=== PATIENT | male | born 1970 | race Caucasian/White ===

== ENCOUNTER 2022-03-30 11:37 | Emergency (ER) | payer OTHER, MEDICAID, SELFPAY ==
[2022-03-30] VITALS (10 sets, daily range): BP systolic 119–171; BP diastolic 72–128; PULSE 88–126; RESP 16–24; TEMP 36.4–36.8; O2SAT 90–98; BMI 23.6
[2022-03-30 12:02] LABS: Basophils # 0.1 10^3/uL (0.0-0.1); Basophils % 0.9 %; Eosinophils % 0.1 %; Hematocrit 29.1 % (42.0-52.0); Hemoglobin 9.9 g/dL (11.7-16.6); Lymphocytes # 0.4 10^3/uL (0.8-4.8); Lymphocytes % 5.1 %; Mean Corpuscular Hemoglobin 36.9 pg (28.0-34.0); Mean Corpuscular Volume 108.6 fl (80-94); Monocytes # 0.7 10^3/uL (0.2-0.9); Monocytes % 9.2 %; Neutrophils # 6.65 10^3/uL (1.8-7.7); Neutrophils % 84.2 %; Nucleated Red Blood Cells % 0 %; Platelet Count 129 10^3/cmm (130-400); Red Blood Count 2.68 10^6/uL (4.1-5.3); Red Cell Distribution Width 12.8 % (12.1-15.1); White Blood Count 7.9 10^3/uL (4.0-10.0)
[2022-03-30 12:34] LABS: Alanine Aminotransferase 86 U/L (0-41); Albumin Level 4.4 g/dL (3.5-5.2); Alkaline Phosphatase 128 IU/L (40-130); Anion Gap 31.8 (5-19); Aspartate Amino Transferase 138 U/L (0-40); Blood Urea Nitrogen 29 mg/dL (6-20); Calcium 9.4 mg/dL (8.5-10.5); Carbon Dioxide 16 mmol/L (22-29); Chloride 95 mmol/L (98-107); Globulin 3.3 g/dL (1.3-4.6); Glomerular Filtration Rate 64.1 mL/min (90-130); Glucose 55 mg/dL (65-115); Osmolality Calculated 293 mOsm/kg (285-295); Sodium 140 mmol/L (136-145); Total Bilirubin 4.1 mg/dL (0.15-1.2); Total Protein 7.7 g/dL (6.6-8.7)
--- NOTE | 2022-03-30 12:35 | PC.NURSE ---
Patient attempted to get out of bed x2, charge account identification clerk and vat house laborer aware, bed placement closer to nursing station. Patient instructed to stay in bed, call light within reach. Explained to patient that it is unsafe to try and get up at this time.
[2022-03-30 12:37] LABS: Alcohol Level < 10 mg/dL (0-10); Potassium 2.8 mmol/L (3.5-5.1)
--- NOTE | 2022-03-30 12:38 | PC.NURSE ---
Dr. Garzon notified that patient potassium is 2.8.
--- NOTE | 2022-03-30 13:07 | ED_ITS ---
Documented by User: Morris Garzon DO 04/11/22 08:21 HPI - Alcohol General: Chief Complaint: Alcohol Stated Complaint: ETOH WITHDRAWL Time Seen by Provider: 03/30/22 11:53 Source: patient Mode of arrival: ambulatory Limitations: no limitations History of Present Illness: 51-year-old male presents emergency room with complaints of alcohol withdrawal. Patient states he drinks half a gallon alcohol daily for the last several years. He stopped drinking about 4 days ago he is feeling weak he has tremors at this time. He states a few years ago he had a seizure, or he thinks he may have related to stopping drinking. He is confused and disoriented at this time he denies chest or abdominal pain no hematochezia melena hematemesis or coffee-ground emesis. MD complaint: alcohol withdrawal and alcohol dependence Last drink: Days (ago) Chronic alcohol use: Yes Recent trauma: No Associated symptoms: Deny abdominal pain, depression, diaphoresis, hematemesis, involuntary movements, melena, nausea, seizure-like activity, suicidal ideation, syncope or vomiting Treatments prior to arrival: none Review of Systems Const: Reports: fatigue and malaise; Denies: fever(s), chills or diaphoresis ENMT: Denies: throat pain, ear or mastoid pain, nasal discharge or nasal congestion Card: Denies: chest pain, palpitations, irregular heart rhythm or syncope Resp: Denies: dyspnea, productive cough or non-productive cough GI: Denies: abdominal pain, nausea, vomiting, hematemesis or melena : Denies: flank pain, dysuria, urinary frequency or urinary urgency Skin/Breast: Denies: rash or pruritus Neuro: Denies: seizure-like activity or involuntary movements Psych: Denies: depression or suicidal ideation PFS ED PFSH: Medical History Alcohol abuse Social History (Updated 04/11/22 @ 08:16 by Morris Garzon DO) Smoking and tobacco status: current every day smoker Alcohol intake: current Alcohol intake frequency: 3 or more drinks per day Alcohol type: hard liquor Physical Exam Const: GENERAL APPEARANCE: cooperative and comfortable ORIENTATION/CONSCIOUSNESS: Yes awake, Yes oriented to person, Yes oriented to place and Yes oriented to time HENMT: COMMON NORMALS: normocephalic, atraumatic and hearing grossly normal bilaterally HEAD & SCALP: normocephalic and atraumatic Neck/C-Spine: COMMON NORMALS: no JVD Resp: COMMON NORMALS: normal respiratory effort, No retractions, No use of accessory muscles and clear to auscultation bilaterally AUSCULTATION: clear to auscultation bilaterally Cardio: COMMON NORMALS: no JVD, regular rate, regular rhythm and No murmurs present (Cardio) RATE: regular rate RHYTHM: regular rhythm GI: COMMON NORMALS: Soft to palpation and No hepatosplenomegaly present AUSCULTATION: Yes normoactive bowel sounds PALPATION: Yes Soft to palpation, No Tenderness to palpation present (GI), No Guarding due to palpation present (GI) and Yes No hepatosplenomegaly present Extremity: COMMON NORMALS: normal to inspection, capillary refill normal, no clubbing, cyanosis or edema, no calf tenderness and no pedal edema Neuro: SENSORIUM/ORIENTATION: Yes oriented to person, Yes oriented to place and Yes oriented to time Skin: COMMON NORMALS: no rashes or lesions noted GENERAL SKIN EXAM: no rashes or lesions noted Course Vital Signs: Vital signs: Vital Signs Temperature 98.3 F 03/31/22 01:30 Pulse Rate 99 03/31/22 01:30 Respiratory Rate 20 H 03/31/22 01:30 Blood Pressure 149/108 03/31/22 01:30 Pulse Oximetry 92 03/31/22 01:30 MDM - Alcohol Medical Decision Making Patient given fluids and started on the CIWA protocol. He continued to be monitored we have been attempting to find placement for him. At this point our ICU is full at talk to Dr. Sheriff with the plan of trying to prove his medical condition closed anion gap and consider placement in psych theatric unit for further management of his alcohol withdrawal however patient continued to worsen care turned over to Dr. Brooks. Time and transition repeat labs showed that his anion gap is actually increased as well as his lactic acid. Patient care handed off from Dr. Garzon pending the patient ED evaluation and reassessment. Despite multiple treatments with both IV fluids and benzodiazepines patient condition continues to worsen. Laboratory studies also reflect worsening. He certainly requires ICU care and unfortunately do not have ICU bed availability. Patient's updated to [facility] ICU in [place]. Most likely diagnosis is DTs with profound metabolic derangement. The exact physician did asked that I treat patient with fomepizole as we do not have ability to to perform in-house serum osm testing and patient has persisted markedly elevated anion gap despite treatment. Patient transported via ground EMS in guarded condition with critical illness. Blake Tobin MD Emergency Medicine Lab Data : 03/30/22 11:44 03/30/22 17:[address] 03/30/22 21:23 IMPRESSION: No acute intracranial abnormality. Chest X-Ray 03/30/22 21:42 IMPRESSION: No acute cardiopulmonary abnormality. Laboratory Results WBC 7.9 10^3/uL (4.0-10.0) 03/30/22 11:44 RBC 2.68 10^6/uL (4.1-5.3) L 03/30/22 11:44 Hgb 9.9 g/dL (11.7-16.6) L 03/30/22 11:44 Hct 29.1 % (42.0-52.0) L 03/30/22 11:44 MCV 108.6 fl (80-94) H 03/30/22 11:44 MCH 36.9 pg (28.0-34.0) H 03/30/22 11:44 MCHC 34.0 g/dL (30.0-36.0) 03/30/22 11:44 RDW 12.8 % (12.1-15.1) 03/30/22 11:44 Plt Count 129 10^3/cmm (130-400) L 03/30/22 11:44 MPV 12.0 fL (7.4-10.4) H 03/30/22 11:44 Neut % (Auto) 84.2 % 03/30/22 11:44 Lymph % (Auto) 5.1 % 03/30/22 11:44 [place] % (Auto) 9.2 % 03/30/22 11:44 Eos % (Auto) 0.1 % 03/30/22 11:44 Baso % (Auto) 0.9 % 03/30/22 11:44 Neut # (Auto) 6.65 10^3/uL (1.8-7.7) 03/30/22 11:44 Lymph # (Auto) 0.4 10^3/uL (0.8-4.8) L 03/30/22 11:44 [place] # (Auto) 0.7 10^3/uL (0.2-0.9) 03/30/22 11:44 Eos # (Auto) 0.0 10^3/uL (0.0-0.8) 03/30/22 11:44 Baso # (Auto) 0.1 10^3/uL (0.0-0.1) 03/30/22 11:44 Nucleated RBC % (auto) 0 % 03/30/22 11:44 Nucleated RBCs # 0.0 /100WBC 03/30/22 11:44 Specimen Type Arterial 03/30/22 21:29 Sample Site Radial, right 03/30/22 21:29 ABG pH 7.16 (7.35-7.45) L* 03/30/22 21:29 ABG pCO2 17.0 mmHg (35-45) L* 03/30/22 21:29 ABG pO2 111.0 mmHg (80.0-100.0) H 03/30/22 21:29 ABG HCO3 6.0 mmol/L (22-26) L 03/30/22 21:29 ABG Base Excess -20.7 mmol/L (-2.0-2.0) L 03/30/22 21:29 Gerardo Test Pos 03/30/22 21:29 Hematocrit 27.3 % (42-52) L 03/30/22 21:29 O2 Delivery Device Room air 03/30/22 21:29 FiO2 21.0 % 03/30/22 21:29 Camera Mechanic ID Ed 03/30/22 21:29 Sodium 143 mmol/L (136-145) 03/30/22 17:37 Potassium 2.8 mmol/L (3.5-5.1) L* 03/30/22 17:37 Chloride 100 mmol/L (98-107) 03/30/22 17:37 Carbon Dioxide 10 mmol/L (22-29) L 03/30/22 17:37 Anion Gap 35.8 (5-19) H 03/30/22 17:37 BUN 28 mg/dL (6-20) H 03/30/22 17:37 Creatinine 1.1 mg/dL (0.7-1.2) 03/30/22 17:37 GFR Calculation 70.9 mL/min (90-130) L 03/30/22 17:37 Glucose 61 mg/dL (65-115) L 03/30/22 17:37 POC Glucose 72 mg/dL (70-110) 03/30/22 22:28 Calculated Osmolality 299 mOsm/kg (285-295) H 03/30/22 17:37 Lactic Acid 0.6 mmol/L (0.5-2.2) 03/30/22 22:40 Calcium 7.9 mg/dL (8.5-10.5) L 03/30/22 17:37 Total Bilirubin 4.1 mg/dL (0.15-1.2) H 03/30/22 11:44 AST 138 U/L (0-40) H 03/30/22 11:44 ALT 86 U/L (0-41) H 03/30/22 11:44 Alkaline Phosphatase 128 IU/L (40-130) 03/30/22 11:44 Total Protein 7.7 g/dL (6.6-8.7) 03/30/22 11:44 Albumin 4.4 g/dL (3.5-5.2) 03/30/22 11:44 Globulin 3.3 g/dL (1.3-4.6) 03/30/22 11:44 Salicylates < 0.3 mg/dL (3-10) L 03/30/22 11:49 Urine Opiates Screen Negative ng/mL (Negative) 03/30/22 22:40 Acetaminophen < 5.0 ug/mL (10-30) L 03/30/22 11:49 Ur Barbiturates Screen Negative ng/mL (Negative) 03/30/22 22:40 Ur Phencyclidine Scrn Negative ng/mL (Negative) 03/30/22 22:40 Ur Amphetamines Screen Negative ng/mL (Negative) 03/30/22 22:40 U Benzodiazepines Scrn Positive ng/mL (Negative) H 03/30/22 22:40 Urine Cocaine Screen Negative ng/mL (Negative) 03/30/22 22:40 U Marijuana (THC) Screen Negative ng/mL (Negative) 03/30/22 22:40 Ethyl Alcohol < 10 mg/dL (0-10) 03/30/22 11:44 Discharge Plan Discharge Clinical Impression: Alcohol withdrawal delirium, Alcoholic ketoacidosis, Hypokalemia, Anemia, macrocytic, Transaminitis, Elevated bilirubin Sign Out Sign Out Data: Patient Sign Out occurred on 03/30/22 at 19:19. Patient's care was discussed, and care was transferred from to Blake Tobin MD. Coding Level of Care Code ED Buildings And Grounds Director for Chg Fwd Documented by User: Blake Tobin MD 04/11/22 01:49 HPI - Alcohol General: Chief Complaint: Alcohol Stated Complaint: ETOH WITHDRAWL Time Seen by Provider: 03/30/22 11:53 PFSH ED PFSH: Medical History Alcohol abuse Social History (Updated 04/11/22 @ 08:16 by Morris Garzon, ) Smoking and tobacco status: current every day smoker Alcohol intake: current Alcohol intake frequency: 3 or more drinks per day Alcohol type: hard liquor Course Vital Signs: Vital signs: Vital Signs Temperature 98.3 F 03/31/22 01:30 Pulse Rate 99 03/31/22 01:30 Respiratory Rate 20 H 03/31/22 01:30 Blood Pressure 149/108 03/31/22 01:30 Pulse Oximetry 92 03/31/22 01:30 MDM - Alcohol Medical Decision Making Patient care handed off from Dr. Garzon pending the patient ED evaluation and reassessment. Despite multiple treatments with both IV fluids and benzodiazepines patient condition continues to worsen. Laboratory studies also reflect worsening. He certainly requires ICU care and unfortunately do not have ICU bed availability. Patient's updated to [facility] ICU in [place]. Most likely diagnosis is DTs with profound metabolic derangement. The exact physici an did asked that I treat patient with fomepizole as we do not have ability to to perform in-house serum osm testing and patient has persisted markedly elevated anion gap despite treatment. Patient transported via ground EMS in guarded condition with critical illness. Blake Tobin MD Emergency Medicine Lab Data : 03/30/22 11:44 03/30/22 17:[address] 03/30/22 21:23 IMPRESSION: No acute intracranial abnormality. Chest X-Ray 03/30/22 21:42 IMPRESSION: No acute cardiopulmonary abnormality. Laboratory Results WBC 7.9 10^3/uL (4.0-10.0) 03/30/22 11:44 RBC 2.68 10^6/uL (4.1-5.3) L 03/30/22 11:44 Hgb 9.9 g/dL (11.7-16.6) L 03/30/22 11:44 Hct 29.1 % (42.0-52.0) L 03/30/22 11:44 MCV 108.6 fl (80-94) H 03/30/22 11:44 MCH 36.9 pg (28.0-34.0) H 03/30/22 11:44 MCHC 34.0 g/dL (30.0-36.0) 03/30/22 11:44 RDW 12.8 % (12.1-15.1) 03/30/22 11:44 Plt Count 129 10^3/cmm (130-400) L 03/30/22 11:44 MPV 12.0 fL (7.4-10.4) H 03/30/22 11:44 Neut % (Auto) 84.2 % 03/30/22 11:44 Lymph % (Auto) 5.1 % 03/30/22 11:44 [place] % (Auto) 9.2 % 03/30/22 11:44 Eos % (Auto) 0.1 % 03/30/22 11:44 Baso % (Auto) 0.9 % 03/30/22 11:44 Neut # (Auto) 6.65 10^3/uL (1.8-7.7) 03/30/22 11:44 Lymph # (Auto) 0.4 10^3/uL (0.8-4.8) L 03/30/22 11:44 [place] # (Auto) 0.7 10^3/uL (0.2-0.9) 03/30/22 11:44 Eos # (Auto) 0.0 10^3/uL (0.0-0.8) 03/30/22 11:44 Baso # (Auto) 0.1 10^3/uL (0.0-0.1) 03/30/22 11:44 Nucleated RBC % (auto) 0 % 03/30/22 11:44 Nucleated RBCs # 0.0 /100WBC 03/30/22 11:44 Specimen Type Arterial 03/30/22 21:29 Sample Site Radial, right 03/30/22 21:29 ABG pH 7.16 (7.35-7.45) L* 03/30/22 21:29 ABG pCO2 17.0 mmHg (35-45) L* 03/30/22 21:29 ABG pO2 111.0 mmHg (80.0-100.0) H 03/30/22 21:29 ABG HCO3 6.0 mmol/L (22-26) L 03/30/22 21:29 ABG Base Excess -20.7 mmol/L (-2.0-2.0) L 03/30/22 21:29 Gerardo Test Pos 03/30/22 21:29 Hematocrit 27.3 % (42-52) L 03/30/22 21:29 O2 Delivery Device Room air 03/30/22 21:29 FiO2 21.0 % 03/30/22 21:29 Camera Mechanic ID Ed 03/30/22 21:29 Sodium 143 mmol/L (136-145) 03/30/22 17:37 Potassium 2.8 mmol/L (3.5-5.1) L* 03/30/22 17:37 Chloride 100 mmol/L (98-107) 03/30/22 17:37 Carbon Dioxide 10 mmol/L (22-29) L 03/30/22 17:37 Anion Gap 35.8 (5-19) H 03/30/22 17:37 BUN 28 mg/dL (6-20) H 03/30/22 17:37 Creatinine 1.1 mg/dL (0.7-1.2) 03/30/22 17:37 GFR Calculation 70.9 mL/min (90-130) L 03/30/22 17:37 Glucose 61 mg/dL (65-115) L 03/30/22 17:37 POC Glucose 72 mg/dL (70-110) 03/30/22 22:28 Calculated Osmolality 299 mOsm/kg (285-295) H 03/30/22 17:37 Lactic Acid 0.6 mmol/L (0.5-2.2) 03/30/22 22:40 Calcium 7.9 mg/dL (8.5-10.5) L 03/30/22 17:37 Total Bilirubin 4.1 mg/dL (0.15-1.2) H 03/30/22 11:44 AST 138 U/L (0-40) H 03/30/22 11:44 ALT 86 U/L (0-41) H 03/30/22 11:44 Alkaline Phosphatase 128 IU/L (40-130) 03/30/22 11:44 Total Protein 7.7 g/dL (6.6-8.7) 03/30/22 11:44 Albumin 4.4 g/dL (3.5-5.2) 03/30/22 11:44 Globulin 3.3 g/dL (1.3-4.6) 03/30/22 11:44 Salicylates < 0.3 mg/dL (3-10) L 03/30/22 11:49 Urine Opiates Screen Negative ng/mL (Negative) 03/30/22 22:40 Acetaminophen < 5.0 ug/mL (10-30) L 03/30/22 11:49 Ur Barbiturates Screen Negative ng/mL (Negative) 03/30/22 22:40 Ur Phencyclidine Scrn Negative ng/mL (Negative) 03/30/22 22:40 Ur Amphetamines Screen Negative ng/mL (Negative) 03/30/22 22:40 U Benzodiazepines Scrn Positive ng/mL (Negative) H 03/30/22 22:40 Urine Cocaine Screen Negative ng/mL (Negative) 03/30/22 22:40 U Marijuana (THC) Screen Negative ng/mL (Negative) 03/30/22 22:40 Ethyl Alcohol < 10 mg/dL (0-10) 03/30/22 11:44 Critical Care Time Critical Care Time: Critical Care Time: Yes Total Critical Care Time: 45 Attestation: Due to a high probability of clinically significant, possibly life threatening deterioration, the patient required my highest level of attention and pre paredness to intervene emergently and I personally spent this critical care time directly and personally managing the patient. This critical care time included obtaining a history; examining the patient; pulse oximetry; ordering and review of laboratory and imaging studies; arranging urgent treatment with development of a management plan; evaluation of patient's response to treatment; frequent re assessment; and, discussions with other providers as applicable. It was exclusive of separately billable procedures. Discharge Plan Discharge Clinical Impression: Alcohol withdrawal delirium, Alcoholic ketoacidosis, Hypokalemia, Anemia, macrocytic, Transaminitis, Elevated bilirubin Sign Out Sign Out Data: Patient Sign Out occurred on 03/30/22 at 19:19. Patient's care was discussed, and care was transferred from to Blake Tobin MD. Coding Level of Care Code ED Buildings And Grounds Director for Maryam Canas
[2022-03-30] MEDS: folic acid 1 MG, multivitamin inj 10 ML, thiamine 100 MG in sodium chloride 0.9% 1,000 ML 252.8 MG IV (13:17)
[2022-03-30] MEDS: LORazepam 2 mg/mL INJ 1 mL (14:27)
[2022-03-30] MEDS: LORazepam 2 mg/mL INJ 1 mL IM (14:58)
[2022-03-30] MEDS: sodium chloride 0.9% 1,000 ML 999 ML IV ×4 (16:01→21:57)
--- NOTE | 2022-03-30 16:27 | ECG_ITS ---
[facility] Test Date: 2022-03-30 Pat Name: Anselmo Rosenthal Department: Room: Gender: Male [employer] Interpreter: : 1970 Requested By: Morris Duval Order Number: [id number] Idalia MD: Teofilo Lai M.D. Measurements Intervals [place] Rate: 96 P: 70 IN: 145 QRS: 12 QRSD: 113 T: 23 QT: 383 QTc: 485 Interpretive Statements SINUS RHYTHM POSSIBLE LEFT ATRIAL ENLARGEMENT [-0.1mV P-WAVE IN V1/V2] MODERATE INTRAVENTRICULAR CONDUCTION DELAY [110+ ms QRS DURATION] No previous ECG available for comparison Electronically Signed On 03-30-2022 20:19:55 CDT by Teofilo Lai M.D. [id number]
[2022-03-30] MEDS: potassium chloride premix 100 ML 25 MEQ IV ×2 (16:40→21:08)
[2022-03-30] MEDS: LORazepam 2 mg/mL INJ 1 mL IVP ×2 (17:51→22:02)
[2022-03-30 18:35] LABS: Anion Gap 35.8 (5-19); Blood Urea Nitrogen 28 mg/dL (6-20); Calcium 7.9 mg/dL (8.5-10.5); Carbon Dioxide 10 mmol/L (22-29); Chloride 100 mmol/L (98-107); Glomerular Filtration Rate 70.9 mL/min (90-130); Glucose 61 mg/dL (65-115); Osmolality Calculated 299 mOsm/kg (285-295); Sodium 143 mmol/L (136-145)
[2022-03-30 18:43] LABS: Potassium 2.8 mmol/L (3.5-5.1)
--- NOTE | 2022-03-30 19:17 | PC.NURSE ---
This RN gave report to TAMMY Murphy at this time who will assume care at this time.
[2022-03-30] MEDS: magnesium sulfate premix 2 GM/50 ML PIGGYBACK IV (19:57)
--- NOTE | 2022-03-30 20:03 | PC.NURSE ---
Checked on pt and started another fluid bolus. Pt is not answering questions and is still shaky. Pt is protecting his airway. Pt was incontinent and changed and beding was changed.
--- NOTE | 2022-03-30 21:23 | CTR_ITS ---
PROCEDURE INFORMATION: Exam: CT Head Without Contrast Exam date and time: 03/30/2022 9:45 PM Age: 51 years old Clinical indication: Altered mental status/memory loss; Additional info: AMS TECHNIQUE: Imaging protocol: Computed tomography of the head without contrast. Radiation optimization: All CT scans at this facility use at least one of these dose optimization techniques: automated exposure control; mA and/or kV adjustment per patient size (includes targeted exams where dose is matched to clinical indication); or iterative reconstruction. COMPARISON: No relevant prior studies available. RADIATION DOSE METRICS: Total DLP (mGy-cm): 1636.39 FINDINGS: Brain: Mild atrophy and mild white matter chronic microvascular changes are noted. No hemorrhage or evidence of acute infarction. Cerebral ventricles: No ventriculomegaly. Paranasal sinuses: Visualized sinuses are unremarkable. No fluid levels. Mastoid air cells: Visualized mastoid air cells are well aerated. Bones/joints: Unremarkable. No acute fracture. Soft tissues: Unremarkable. CT/CT head wo con* [id number] IMPRESSION: No acute intracranial abnormality.
[2022-03-30 21:38] LABS: Arterial Blood Gas Hematocrit 27.3 % (42-52); Base Excess ABG -20.7 mmol/L (-2.0-2.0); Blood Gas Allen Test Pos; Blood Gas Operator Identificat ED; Blood Gas Sample Site Radial, right; Blood Gas Sample Type Arterial; Oxygen Device ROOM AIR
[2022-03-30 21:39] LABS: ABG PH Result 7.16 (7.35-7.45)
--- NOTE | 2022-03-30 21:42 | XRR_ITS ---
PROCEDURE INFORMATION: Exam: XR Chest Exam date and time: 03/30/2022 10:01 PM Age: 51 years old Clinical indication: Other: AMS TECHNIQUE: Imaging protocol: XR of the chest. Views: 1 view. COMPARISON: No relevant prior studies available. FINDINGS: Lungs: The lungs are clear. Pleural spaces: Unremarkable. No pleural effusion. No pneumothorax. Heart/Mediastinum: Unremarkable. No cardiomegaly. Bones/joints: Unremarkable. XR/XR chest 1V portable [id number] IMPRESSION: No acute cardiopulmonary abnormality.
[2022-03-30 22:17] LABS: Acetaminophen < 5.0 ug/mL (10-30); Salicylate < 0.3 mg/dL (3-10)
[2022-03-30 22:31] LABS: Glucose Point of Care 72 mg/dL (70-110)
[2022-03-30 23:06] LABS: Lactic Sepsis W/Reflex 0.6 mmol/L (0.5-2.2)
[2022-03-30] MEDS: dextrose 5%-sod chloride 0.9% 1,000 ML 100 ML IV (23:15)
[2022-03-31 00:16] LABS: Amphetamines Screen Urine Negative (Negative); Barbiturates Screen Urine Negative (Negative); Benzodiazepines Screen Urine Positive (Negative); Cocaine Screen Urine Negative (Negative); Opiate Screen Urine Negative (Negative); PCP Screen Urine Negative (Negative); THC Screen Urine Negative (Negative)
[2022-03-31 01:30] VITALS: BP 149/108; PULSE 99; RESP 20; TEMP 36.8; O2SAT 92
[2022-03-31] MEDS: potassium chloride premix 100 ML 25 MEQ IV (01:35)
--- NOTE | 2022-04-01 05:31 | PC.NURSE ---
Advised Dr. Delgadillo of preliminary 1 of 4 bottles, gram + cocci in clusters. Awaiting final results.
[2022-04-01 07:18] LABS: Bacillus cereus group Not Detected (NOT DETECT); Bacillus subtillis group Not Detected (NOT DETECT); Corynebacterium Not Detected (NOT DETECT); Cutibacterium acnes (P.acnes) Not Detected (NOT DETECT); Enterococcus Not Detected (NOT DETECT); Enterococcus faecalis Not Detected (NOT DETECT); Enterococcus faecium Not Detected (NOT DETECT); Lactobacillus species Not Detected (NOT DETECT); Listeria Not Detected (NOT DETECT); Listeria monocytogenes Not Detected (NOT DETECT); Micrococcus Not Detected (NOT DETECT); Pan Candida Not Detected (NOT DETECT); Pan Gram-Negative Not Detected (NOT DETECT); Staphylococcus epidermidis Not Detected (NOT DETECT); Staphylococcus lugdunensis Not Detected (NOT DETECT); Staphylococcus species Detected (NOT DETECT); Streptococcus agalactiae Not Detected (NOT DETECT); Streptococcus anginosus group Not Detected (NOT DETECT); Streptococcus pneumoniae Not Detected (NOT DETECT); Streptococcus pyogenes Not Detected (NOT DETECT); Streptococcus species Not Detected (NOT DETECT); mecA Not Detected (NOT DETECT); mecC Not Detected (NOT DETECT)
== END 2022-03-31 02:09 | disposition short-term general hospital (02) ==
PROVIDERS: Family Medicine; Physician Assistant; Emergency Provider Emergency Medicine
DX: F10.231 Alcohol dependence with withdrawal delirium (principal); Y90.0 Blood alcohol level of less than 20 mg/100 ml; E87.2 Acidosis; E87.6 Hypokalemia; D64.9 Anemia, unspecified; D75.89 Other specified diseases of blood and blood-forming organs; R74.01 Elevation of levels of liver transaminase levels; E80.7 Disorder of bilirubin metabolism, unspecified; F17.200 Nicotine dependence, unspecified, uncomplicated
CPT/HCPCS: 36416; 36600; 70450; 71045; 80048; 80053; 80306; 80307; 82803; 82962; 83605; 85025; 87040; 87150; 87205; 93005; 96365; 96366; 96367; 96372; 96375; 96376; 99285; J1451; J2060; J3411; J3475; J3480; J3490; J7030

== ENCOUNTER 2022-05-24 08:47 | Inpatient (IN) | payer OTHER, MEDICAID, SELFPAY ==
[2022-05-24] VITALS (9 sets, daily range): BP systolic 104–110; BP diastolic 68–76; PULSE 78–116; RESP 14–22; TEMP 36.6–36.9; O2SAT 95–99; BMI 22.1; BMI 18.7
[2022-05-24] MEDS: ondansetron 2 mg/ML SDV 2 mL 4 MG IVP (09:27)
[2022-05-24] MEDS: LORazepam 2 mg Tablet PO (09:27)
[2022-05-24 09:41] LABS: Basophils % 0.3 %; Eosinophils # 0.2 10^3/uL (0.0-0.8); Eosinophils % 2.4 %; Hematocrit 37.4 % (42.0-52.0); Hemoglobin 12.6 g/dL (11.7-16.6); Lymphocytes # 0.3 10^3/uL (0.8-4.8); Lymphocytes % 2.9 %; Mean Corpuscular HGB Conc 33.7 g/dL (30.0-36.0); Mean Corpuscular Hemoglobin 34.9 pg (28.0-34.0); Mean Corpuscular Volume 103.6 fl (80-94); Mean Platelet Volume 11.4 fL (7.4-10.4); Monocytes # 0.7 10^3/uL (0.2-0.9); Monocytes % 7.5 %; Neutrophils # 8.03 10^3/uL (1.8-7.7); Neutrophils % 86.1 %; Nucleated Red Blood Cells % 0.3 %; Platelet Count 72 10^3/cmm (130-400); Red Blood Count 3.61 10^6/uL (4.1-5.3); Red Cell Distribution Width 13.5 % (12.1-15.1); White Blood Count 9.3 10^3/uL (4.0-10.0)
[2022-05-24 09:42] LABS: Alanine Aminotransferase 90 U/L (0-41); Albumin Level 4.1 g/dL (3.5-5.2); Alkaline Phosphatase 150 IU/L (40-130); Anion Gap 46.3 (5-19); Aspartate Amino Transferase 179 U/L (0-40); Blood Urea Nitrogen 34 mg/dL (6-20); Calcium 9.7 mg/dL (8.5-10.5); Carbon Dioxide 14 mmol/L (22-29); Chloride 82 mmol/L (98-107); Globulin 3.8 g/dL (1.3-4.6); Glomerular Filtration Rate 12.9 mL/min (90-130); Glucose 162 mg/dL (65-115); Osmolality Calculated 299 mOsm/kg (285-295); Potassium 3.3 mmol/L (3.5-5.1); Sodium 139 mmol/L (136-145); Total Protein 7.9 g/dL (6.6-8.7)
[2022-05-24 09:43] LABS: Alcohol Level < 10 mg/dL (0-10)
[2022-05-24] MEDS: folic acid 1 MG, multivitamin inj 10 ML, thiamine 100 MG in sodium chloride 0.9% 1,000 ML 252.8 MG IV (09:49)
[2022-05-24 09:54] LABS: Ammonia 25 umol/L (16-60)
[2022-05-24 10:38] LABS: Protein Urine 3+ (Negative); Urine Appearance Cloudy (CLEAR); Urine Color Brown (Yellow); pH Urine 5 (5-7)
[2022-05-24 10:39] LABS: Add Urine Microscopic? YES; Bilirubin Urine 2+ (Negative); Blood Urine 3+ (Negative); Glucose Urine UA Norm (Normal); Ketones Urine 1+ (Negative); Leukocyte Esterase Urine 1+ (Negative); Nitrate Urine Positive (Negative); Urobilinogen Urine 4 mg/dL (Negative)
[2022-05-24 10:45] LABS: RBC Urine 0-4 /hpf (0-2); Squamous Epithelial Cell Urine 0-4 /hpf (0-5); WBC Urine 0-4 /hpf (0-5)
[2022-05-24 10:46] LABS: Amorphous Sediment Urine 3+ /hpf; Bacteria Urine TRACE /hpf; Hyaline Casts Urine 0-4 /lpf; Mucus Urine 3+ /hpf
[2022-05-24 10:47] LABS: Add Urine Culture? Yes; Amphetamines Screen Urine Negative (Negative); Barbiturates Screen Urine Negative (Negative); Benzodiazepines Screen Urine Positive (Negative); Cocaine Screen Urine Negative (Negative); Fine Granular Casts Urine 0-4 /lpf; Opiate Screen Urine Negative (Negative); PCP Screen Urine Negative (Negative); THC Screen Urine Negative (Negative)
--- NOTE | 2022-05-24 10:50 | W.ED.NAVMDI ---
Documented by User: Morris Garzon DO 05/31/22 07:21 HPI - Nausea/Vomiting/Diarrhea General: Chief complaint: Nausea/Vomiting/Diarrhea Stated complaint: N/V/D, WEAKNESS, HALLUCINATION Time Seen by Provider: 05/24/22 08:49 History of Present Illness: 51-year-old male presents emergency room complaining nausea vomiting weakness dizziness some hallucinations and palpitations. He has not been eating or drinking much for last 3 days he quit drinking alcohol about 24 hours ago. He states he usually drinks around half a pint to a pint per day. He has been doing that for a number of decades. In the past he is try to stop and did have a seizure and one episode. He has not had any seizures today he is quite jittery. Appears to have some scleral icterus he states he has been told before he has liver failure and cirrhosis. MD elicited complaint: nausea and vomiting Onset (ago): hour(s) Description of vomiting: food contents and watery Associated nausea: Yes Associated abdominal pain: Yes Radiation: diffuse Pain consistency: constant Severity: moderate Quality: cramping Exacerbating factors: none Relieving factors: none Associated symtoms: Reports anxiety, anorexia, malaise, nausea and weakness; Denies bloating, change in vision, chest pain, cough, diaphoresis, decreased urine output, dizziness, dysuria, epistaxis, fatigue, fecal incontinence, fevers/chills, headache(s), myalgias, numbness, palpitations, rash, short of breath, syncope, tenesmus or tinnitus Review of Systems Const: Reports: malaise; Denies: fever(s), chills, fatigue or diaphoresis Eyes: Denies: change in vision ENMT: Denies: tinnitus or epistaxis Card: Denies: chest pain, palpitations or syncope Resp: Denies: dyspnea, productive cough or non-productive cough GI: Reports: nausea; Denies: bloating or fecal incontinence : Denies: dysuria Skin/Breast: Denies: rash or pruritus Neuro: Denies: headache(s) or dizziness Psych: Reports: anxiety PFS ED PFSH: Medical History Acute renal failure Alcohol abuse Alcohol withdrawal Anxiety Depression Hypertension Thrombocytopenia Surgical History No pertinent past surgical history Family History Denies family history of Alcoholism Psychiatric illness Pancreatitis Social History Smoking and tobacco status: current every day smoker cigarettes Packs smoked per day: 1.5 Alcohol intake: current Alcohol intake frequency: 3 or more drinks per day Alcohol type: hard liquor Substance/Drug Use: never Additional social history: Moved here from [place] Physical Exam Const: COMMON NORMALS: no acute distress GENERAL APPEARANCE: cooperative ORIENTATION/CONSCIOUSNESS: Yes awake, Yes oriented to person, Yes oriented to place and Yes oriented to time HENMT: COMMON NORMALS: normocephalic, atraumatic, hearing grossly normal bilaterally, external ears normal, EAC's normal, TM's normal bilaterally, Normal nasal mucous membranes and turbinates present, moist oral mucous membranes and oropharynx normal HEAD & SCALP: normocephalic and atraumatic NOSE: Normal nasal mucous membranes and turbinates present EXTERNAL EAR: Yes external ears normal EXTERNAL AUDITORY CANAL: EAC's normal TYMPANIC MEMBRANE: TM's normal bilaterally Eye: COMMON NORMALS: Equal, round and reactive pupils present, EOMs intact bilaterally, conjunctivae normal and no scleral icterus CONJUNCTIVA: Yes conjunctivae normal PUPIL: Yes Equal, round and reactive pupils present Neck/C-Spine: COMMON NORMALS: full ROM, no lymphadenopathy, supple and no JVD Lymph: LYMPHATIC: no lymphadenopathy noted and no lymphedema noted Resp: COMMON NORMALS: normal respiratory effort, No retractions, No use of accessory muscles and clear to auscultation bilaterally AUSCULTATION: clear to auscultation bilaterally Cardio: COMMON NORMALS: no JVD, regular rate, regular rhythm and No murmurs present (Cardio) RATE: regular rate RHYTHM: regular rhythm GI: COMMON NORMALS: No hepatosplenomegaly present AUSCULTATION: Yes normoactive bowel sounds PALPATION: Yes Tenderness to palpation present (GI) Details: LUQ, No Guarding due to palpation present (GI) and Yes No hepatosplenomegaly present Extremity: COMMON NORMALS: normal to inspection, capillary refill normal, no clubbing, cyanosis or edema, no calf tenderness and no pedal edema Neuro: SENSORIUM/ORIENTATION: Yes oriented to person, Yes oriented to place and Yes oriented to time Skin: COMMON NORMALS: no rashes or lesions noted GENERAL SKIN EXAM: no rashes or lesions noted Course Vital Signs: Vital signs: Vital Signs Temperature 98.3 F 05/29/22 08:00 Pulse Rate 0 L 05/29/22 14:00 Respiratory Rate 15 05/29/22 08:00 Blood Pressure 137/84 05/29/22 08:00 Pulse Oximetry 99 05/29/22 08:00 Oxygen Delivery Me thod 05/28/22 12:00 MDM - Nausea/Vomiting/Diarrhea Medical Decision Making Patient has several different issues ongoing. In addition to his persistent nausea and vomiting he has pancreatitis and a high anion gap metabolic acidosis although this is likely precipitated by his drinking. In addition to that he has evidence of cystitis. Discussed with hospitalist orders written Medical Records I reviewed the patient's medical records. Lab Data I reviewed the patient's lab results. : 05/29/22 04:30 05/29/22 16:08 Radiology Impressions Abdomen Ultrasound 05/24/22 14:56 IMPRESSION: 1. Hepatomegaly with coarse echogenicity compatible with hepatocellular disease. Recommend correlation with liver function studies. 2. Hypoechoic pancreas suspicious for pancreatitis. Recommend correlation with pancreatic enzymes. 3. Gallbladder sludge. No gallbladder wall thickening or pericholecystic fluid. 4. Normal common bile duct. 5. No hydronephrosis in either kidney. Laboratory Results WBC 9.3 10^3/uL (4.0-10.0) 05/24/22 09:04 RBC 3.61 10^6/uL (4.1-5.3) L 05/24/22 09:04 Hgb 12.6 g/dL (11.7-16.6) 05/24/22 09:04 Hct 37.4 % (42.0-52.0) L 05/24/22 09:04 MCV 103.6 fl (80-94) H 05/24/22 09:04 MCH 34.9 pg (28.0-34.0) H 05/24/22 09:04 MCHC 33.7 g/dL (30.0-36.0) 05/24/22 09:04 RDW 13.5 % (12.1-15.1) 05/24/22 09:04 Plt Count 72 10^3/cmm (130-400) L 05/24/22 09:04 MPV 11.4 fL (7.4-10.4) H 05/24/22 09:04 Neut % (Auto) 86.1 % 05/24/22 09:04 Lymph % (Auto) 2.9 % 05/24/22 09:04 [place] % (Auto) 7.5 % 05/24/22 09:04 Eos % (Auto) 2.4 % 05/24/22 09:04 Baso % (Auto) 0.3 % 05/24/22 09:04 Neut # (Auto) 8.03 10^3/uL (1.8-7.7) H 05/24/22 09:04 Lymph # (Auto) 0.3 10^3/uL (0.8-4.8) L 05/24/22 09:04 [place] # (Auto) 0.7 10^3/uL (0.2-0.9) 05/24/22 09:04 Eos # (Auto) 0.2 10^3/uL (0.0-0.8) 05/24/22 09:04 Baso # (Auto) 0.0 10^3/uL (0.0-0.1) 05/24/22 09:04 Nucleated RBC % (auto) 0.3 % 05/24/22 09:04 Nucleated RBCs # 0.0 /100WBC 05/24/22 09:04 PT 13.10 SECONDS (12.1-14.9) 05/24/22 09:04 INR 0.97 (0.8-1.2) 05/24/22 09:04 APTT 30.0 SECONDS (23.9-36.7) 05/24/22 09:04 Sodium 139 mmol/L (136-145) 05/24/22 09:04 Potassium 3.3 mmol/L (3.5-5.1) L 05/24/22 09:04 Chloride 82 mmol/L (98-107) L 05/24/22 09:04 Carbon Dioxide 14 mmol/L (22-29) L 05/24/22 09:04 Anion Gap 46.3 (5-19) H 05/24/22 09:04 BUN 34 mg/dL (6-20) H 05/24/22 09:04 Creatinine 4.8 mg/dL (0.7-1.2) H 05/24/22 09:04 GFR Calculation 12.9 mL/min (90-130) L 05/24/22 09:04 Glucose 162 mg/dL (65-115) H 05/24/22 09:04 Serum Osmolality 326 mOsm/kg (278-305) H 05/24/22 09:04 Calculated Osmolality 299 mOsm/kg (285-295) H 05/24/22 09:04 Calcium 9.7 mg/dL (8.5-10.5) 05/24/22 09:04 Phosphorus 4.0 mg/dL (2.5-4.5) 05/24/22 09:04 Magnesium 1.9 mg/dL (1.7-2.3) 05/24/22 09:04 Total Bilirubin 5.0 mg/dL (0.15-1.2) H 05/24/22 09:04 AST 179 U/L (0-40) H 05/24/22 09:04 ALT 90 U/L (0-41) H 05/24/22 09:04 Alkaline Phosphatase 150 IU/L (40-130) H 05/24/22 09:04 Ammonia 25 umol/L (16-60) 05/24/22 09:33 Creatine Kinase 92 U/L (39-308) 05/24/22 09:04 Total Protein 7.9 g/dL (6.6-8.7) 05/24/22 09:04 Albumin 4.1 g/dL (3.5-5.2) 05/24/22 09:04 Globulin 3.8 g/dL (1.3-4.6) 05/24/22 09:04 Lipase 5973 U/L (13-60) H 05/24/22 09:04 Urine Color Brown (Yellow) 05/24/22 10:25 Urine Appearance Cloudy (CLEAR) 05/24/22 10:25 Urine pH 5 (5-7) 05/24/22 10:25 Ur Specific [place] 1.020 (1.005-1.030) 05/24/22 10:25 Urine Protein 3+ (Negative) H 05/24/22 10:25 Urine Glucose (UA) Norm (Normal) 05/24/22 10:25 Urine Ketones 1+ (Negative) H 05/24/22 10:25 Urine Blood 3+ (Negative) H 05/24/22 10:25 Urine Nitrate Positive (Negative) H 05/24/22 10:25 Urine Bilirubin 2+ (Negative) H 05/24/22 10:25 Urine Urobilinogen 4 mg/dL (Negative) H 05/24/22 10:25 Ur Leukocyte Esterase 1+ (Negative) H 05/24/22 10:25 Urine RBC 0-4 /hpf (0-2) H 05/24/22 10:25 Urine WBC 0-4 /hpf (0-5) H 05/24/22 10:25 Ur Squamous Epith Cells 0-4 /hpf (0-5) H 05/24/22 10:25 Amorphous Sediment 3+ /hpf 05/24/22 10:25 Urine Bacteria Trace /hpf (NONE) 05/24/22 10:25 Hyaline Casts 0-4 /lpf H 05/24/22 10:25 Fine Granular Casts 0-4 /lpf H 05/24/22 10:25 Urine Mucus 3+ /hpf 05/24/22 10:25 Urine Opiates Screen Negative ng/mL (Negative) 05/24/22 10:25 Ur Barbiturates Screen Negative ng/mL (Negative) 05/24/22 10:25 Ur Phencyclidine Scrn Negative ng/mL (Negative) 05/24/22 10:25 Ur Amphetamines Screen Negative ng/mL (Negative) 05/24/22 10:25 U Benzodiazepines Scrn Positive ng/mL (Negative) H 05/24/22 10:25 Urine Cocaine Screen Negative ng/mL (Negative) 05/24/22 10:25 U Marijuana (THC) Screen Negative ng/mL (Negative) 05/24/22 10:25 Ethyl Alcohol < 10 mg/dL (0-10) 05/24/22 09:04 Serum Ketones Positive (Negative) H 05/24/22 09:04 Hepatitis A IgM Ab Non-reactive (Nonreactive) 05/24/22 09:04 Hep Bs Antigen Non-reactive (Nonreactive) 05/24/22 09:04 Hep B Core IgM Ab Non-reactive (Nonreactive) 05/24/22 09:04 Hepatitis C Antibody Non-reactive (Nonreactive) 05/24/22 09:04 Discharge Plan Discharge Patient Disposition: Admitted As Inpatient Admit Provider: Meredith Serrano Clinical Impression: Pancreatitis, Acute renal failure, High anion gap metabolic acidosis, Alcohol abuse, Cystitis Condition: Stable Coding Level of Care Code ED Destination Imagination Coordinator for Chg Fwd Documented by User: Meredith Serrano MD 05/27/22 18:10 HPI - Nausea/Vomiting/Diarrhea General: Chief complaint: Nausea/Vomiting/Diarrhea Stated complaint: N/V/D, WEAKNESS, HALLUCINATION Time Seen by Provider: 05/24/22 08:49 PFSH ED PFSH: Medical History Acute renal failure Alcohol abuse Alcohol withdrawal Anxiety Depression Hypertension Thrombocytopenia Surgical History No pertinent past surgical history Family History Denies family history of Alcoholism Psychiatric illness Pancreatitis Social History Smoking and tobacco status: current every day smoker cigarettes Packs smoked per day: 1.5 Alcohol intake: current Alcohol intake frequency: 3 or more drinks per day Alcohol type: hard liquor Substance/Drug Use: never Additional social history: Moved here from [place] Course ED course: I inadvertently accessed this ED documentation while it was in draft during my initial evaluation of Mr. Rosenthal's relevant electronic records. I was attached to this note as an author by the EMR and cannot be removed as a signer. I did not personally care for Mr. Rosenthal within the scope of his ED visit; I did, however, assume care from the ED provider as admitting attending physician. Vital Signs: Vital signs: Vital Signs Temperature 98.3 F 05/29/22 08:00 Pulse Rate 0 L 05/29/22 14:00 Respiratory Rate 15 05/29/22 08:00 Blood Pressure 137/84 05/29/22 08:00 Pulse Oximetry 99 05/29/22 08:00 Oxygen Delivery Me thod 05/28/22 12:00 MDM - Nausea/Vomiting/Diarrhea Medical Decision Making . Lab Data : 05/29/22 04:30 05/29/22 16:08 Radiology Impressions Abdomen Ultrasound 05/24/22 14:56 IMPRESSION: 1. Hepatomegaly with coarse echogenicity compatible with hepatocellular disease. Recommend correlation with liver function studies. 2. Hypoechoic pancreas suspicious for pancreatitis. Recommend correlation with pancreatic enzymes. 3. Gallbladder sludge. No gallbladder wall thickening or pericholecystic fluid. 4. Normal common bile duct. 5. No hydronephrosis in either kidney. Laboratory Results WBC 9.3 10^3/uL (4.0-10.0) 05/24/22 09:04 RBC 3.61 10^6/uL (4.1-5.3) L 05/24/22 09:04 Hgb 12.6 g/dL (11.7-16.6) 05/24/22 09:04 Hct 37.4 % (42.0-52.0) L 05/24/22 09:04 MCV 103.6 fl (80-94) H 05/24/22 09:04 MCH 34.9 pg (28.0-34.0) H 05/24/22 09:04 MCHC 33.7 g/dL (30.0-36.0) 05/24/22 09:04 RDW 13.5 % (12.1-15.1) 05/24/22 09:04 Plt Count 72 10^3/cmm (130-400) L 05/24/22 09:04 MPV 11.4 fL (7.4-10.4) H 05/24/22 09:04 Neut % (Auto) 86.1 % 05/24/22 09:04 Lymph % (Auto) 2.9 % 05/24/22 09:04 [place] % (Auto) 7.5 % 05/24/22 09:04 Eos % (Auto) 2.4 % 05/24/22 09:04 Baso % (Auto) 0.3 % 05/24/22 09:04 Neut # (Auto) 8.03 10^3/uL (1.8-7.7) H 05/24/22 09:04 Lymph # (Auto) 0.3 10^3/uL (0.8-4.8) L 05/24/22 09:04 [place] # (Auto) 0.7 10^3/uL (0.2-0.9) 05/24/22 09:04 Eos # (Auto) 0.2 10^3/uL (0.0-0.8) 05/24/22 09:04 Baso # (Auto) 0.0 10^3/uL (0.0-0.1) 05/24/22 09:04 Nucleated RBC % (auto) 0.3 % 05/24/22 09:04 Nucleated RBCs # 0.0 /100WBC 05/24/22 09:04 PT 13.10 SECONDS (12.1-14.9) 05/24/22 09:04 INR 0.97 (0.8-1.2) 05/24/22 09:04 APTT 30.0 SECONDS (23.9-36.7) 05/24/22 09:04 Sodium 139 mmol/L (136-145) 05/24/22 09:04 Potassium 3.3 mmol/L (3.5-5.1) L 05/24/22 09:04 Chloride 82 mmol/L (98-107) L 05/24/22 09:04 Carbon Dioxide 14 mmol/L (22-29) L 05/24/22 09:04 Anion Gap 46.3 (5-19) H 05/24/22 09:04 BUN 34 mg/dL (6-20) H 05/24/22 09:04 Creatinine 4.8 mg/dL (0.7-1.2) H 05/24/22 09:04 GFR Calculation 12.9 mL/min (90-130) L 05/24/22 09:04 Glucose 162 mg/dL (65-115) H 05/24/22 09:04 Serum Osmolality 326 mOsm/kg (278-305) H 05/24/22 09:04 Calculated Osmolality 299 mOsm/kg (285-295) H 05/24/22 09:04 Calcium 9.7 mg/dL (8.5-10.5) 05/24/22 09:04 Phosphorus 4.0 mg/dL (2.5-4.5) 05/24/22 09:04 Magnesium 1.9 mg/dL (1.7-2.3) 05/24/22 09:04 Total Bilirubin 5.0 mg/dL (0.15-1.2) H 05/24/22 09:04 AST 179 U/L (0-40) H 05/24/22 09:04 ALT 90 U/L (0-41) H 05/24/22 09:04 Alkaline Phosphatase 150 IU/L (40-130) H 05/24/22 09:04 Ammonia 25 umol/L (16-60) 05/24/22 09:33 Creatine Kinase 92 U/L (39-308) 05/24/22 09:04 Total Protein 7.9 g/dL (6.6-8.7) 05/24/22 09:04 Albumin 4.1 g/dL (3.5-5.2) 05/24/22 09:04 Globulin 3.8 g/dL (1.3-4.6) 05/24/22 09:04 Lipase 5973 U/L (13-60) H 05/24/22 09:04 Urine Color Brown (Yellow) 05/24/22 10:25 Urine Appearance Cloudy (CLEAR) 05/24/22 10:25 Urine pH 5 (5-7) 05/24/22 10:25 Ur Specific [place] 1.020 (1.005-1.030) 05/24/22 10:25 Urine Protein 3+ (Negative) H 05/24/22 10:25 Urine Glucose (UA) Norm (Normal) 05/24/22 10:25 Urine Ketones 1+ (Negative) H 05/24/22 10:25 Urine Blood 3+ (Negative) H 05/24/22 10:25 Urine Nitrate Positive (Negative) H 05/24/22 10:25 Urine Bilirubin 2+ (Negative) H 05/24/22 10:25 Urine Urobilinogen 4 mg/dL (Negative) H 05/24/22 10:25 Ur Leukocyte Esterase 1+ (Negative) H 05/24/22 10:25 Urine RBC 0-4 /hpf (0-2) H 05/24/22 10:25 Urine WBC 0-4 /hpf (0-5) H 05/24/22 10:25 Ur Squamous Epith Cells 0-4 /hpf (0-5) H 05/24/22 10:25 Amorphous Sediment 3+ /hpf 05/24/22 10:25 Urine Bacteria Trace /hpf (NONE) 05/24/22 10:25 Hyaline Casts 0-4 /lpf H 05/24/22 10:25 Fine Granular Casts 0-4 /lpf H 05/24/22 10:25 Urine Mucus 3+ /hpf 05/24/22 10:25 Urine Opiates Screen Negative ng/mL (Negative) 05/24/22 10:25 Ur Barbiturates Screen Negative ng/mL (Negative) 05/24/22 10:25 Ur Phencyclidine Scrn Negative ng/mL (Negative) 05/24/22 10:25 Ur Amphetamines Screen Negative ng/mL (Negative) 05/24/22 10:25 U Benzodiazepines Scrn Positive ng/mL (Negative) H 05/24/22 10:25 Urine Cocaine Screen Negative ng/mL (Negative) 05/24/22 10:25 U Marijuana (THC) Screen Negative ng/mL (Negative) 05/24/22 10:25 Ethyl Alcohol < 10 mg/dL (0-10) 05/24/22 09:04 Serum Ketones Positive (Negative) H 05/24/22 09:04 Hepatitis A IgM Ab Non-reactive (Nonreactive) 05/24/22 09:04 Hep Bs Antigen Non-reactive (Nonreactive) 05/24/22 09:04 Hep B Core IgM Ab Non-reactive (Nonreactive) 05/24/22 09:04 Hepatitis C Antibody Non-reactive (Nonreactive) 05/24/22 09:04 Discharge Plan Discharge Patient Disposition: Admitted As Inpatient Admit Provider: Meredith Serrano Clinical Impression: Pancreatitis, Acute renal failure, High anion gap metabolic acidosis, Alcohol abuse, Cystitis Condition: Stable Coding Level of Care Code ED Destination Imagination Coordinator for Maryam Canas
[2022-05-24 11:36] LABS: Lipase 5973 U/L (13-60)
[2022-05-24] MEDS: sodium chloride 0.9% 1,000 ML 999 ML IV ×2 (12:21→16:18)
--- NOTE | 2022-05-24 13:48 | P.HP_ITS ---
Providers/Chief Complaint Admitting Physician: Meredith Serrano MD Chief Complaint: N/V/D, WEAKNESS, HALLUCINATION History of Present Illness Anselmo Rosenthal is a 51 year old male who presented to the emergency room with chief complaint of intractable nausea and vomiting. He has vomited more times than he can count over the last 2 days. Any attempted oral intake he vomits. He has had some loose stools but the vomit has been more concerning to him. He denied any hematemesis. No blood in his bowels. He normally drinks about a half a pint of hard liquor a day. He has not been able to keep any down for a day and a half. Denies prior problems with severe alcohol withdrawal but has had the tremors start to develop in the last 24 hours. He has had general malaise, weakness. Denies any abdominal pain. In the emergency room he was found to have evidence of acute renal failure, hepatitis and pancreatitis. Hospitalist were contacted for admission. Recent fever or chills. He has had significant decrease in urine output. Says he has not had any urine output for about a day. No dysuria or hematuria. He has not had any upper respiratory symptoms. No chest pain. Denies weight loss. No increased abdominal girth. No bleeding. No sores. Does report some bad teeth. In the emergency room patient received some fluids, Zofran, oral Ativan. He has not had any further vomiting. He did produce urine specimen for analysis. Review of Systems Const: Reports: change in appetite (No appetite), fatigue and malaise; Denies: fever(s), chills or change in weight Eyes: Denies: change in vision ENMT: Reports: other (A couple of bad teeth); Denies: throat pain or nasal congestion Card: Reports: leg pain with exertion; Denies: chest pain, palpitations, edema, lightheadedness, syncope or dyspnea on exertion Resp: Denies: dyspnea, productive cough, non-productive cough or pain on inspiration GI: Reports: nausea, vomiting (Too numerous to count), heartburn and diarrhea (Some loose stools); Denies: abdominal pain, hematemesis, coffee ground emesis, constipation, hematochezia or melena : Reports: oliguria; Denies: flank pain, difficulty urinating, dysuria, urinary frequency or hematuria Musc: Reports: other (Generalized aches and pains) Skin/Breast: Denies: rash, pruritus or sores Neuro: Denies: headache(s), numbness in extremities, weakness in extremities or difficulty walking Psych: Reports: anxiety, depression and difficulty concentrating; Denies: visual hallucinations, auditory hallucinations, tactile hallucinations, suicidal ideation or homicidal ideation Avlerto/Lymph: Denies: easy bruising or easy bleeding All/Imm: Reports: itchy eyes Medications/Allergies Home Medications Medication Instructions Recorded Confirmed Last Taken Type clonazepam 0.5 mg tablet 0.5 mg PO BID 03/30/22 05/24/22 Unknown History losartan 100 mg tablet 100 mg PO DAILY 03/30/22 05/24/22 Unknown History sucralfate 1 gram tablet 1 g PO .BEFORE MEALS 03/30/22 05/24/22 Unknown History citalopram 20 mg tablet 20 mg PO BEDTIME 05/24/22 05/24/22 Unknown History folic acid 1 mg tablet 1 mg PO DAILY 05/24/22 05/24/22 Unknown History Allergies Allergy/AdvReac Type Severity Reaction Status Date / Time No Known Allergies Allergy Verified 05/24/22 09:52 PFSH Acute PFSH: Medical History (Updated 05/24/22 @ 15:16 by Meredith Serrano MD) Alcohol abuse Anxiety Depression Hypertension Surgical History (Updated 05/24/22 @ 14:34 by Meredith Serrano MD) No pertinent past surgical history Family History (Updated 05/24/22 @ 14:35 by Meredith Serrano MD) Denies family history of Alcoholism Psychiatric illness Pancreatitis Social History (Updated 05/24/22 @ 14:36 by Meredith Serrano MD) Smoking and tobacco status: current every day smoker cigarettes Packs smoked per day: 1.5 Alcohol intake: current Alcohol intake frequency: 3 or more drinks per day Alcohol type: hard liquor Substance/Drug Use: never Additional social history: Moved here from [place] Vitals/I&O/Wt Last Vital Signs Temp 98.4 F 05/24/22 08:54 Pulse 93 05/24/22 11:33 Resp 22 H 05/24/22 11:33 BP 108/68 05/24/22 11:33 Pulse Ox 98 05/24/22 11:33 O2 Del Method 05/24/22 11:33 Weight last 48 hrs Weight 68.039 kg Physical Exam Narrative: Constitutional: Awake and alert, mildly tremulous, anxious appearing but cooperative and able to provide history HEENT: Normocephalic, atraumatic, extraocular movements intact, lateral nystagmus, injected conjunctive a bilaterally right more so than left, na sopharynx is clear, oropharynx with dry mucous membranes, fair dentition with a few obvious bad teeth lower right Neck: Supple Respiratory: Clear to auscultation bilaterally Cardiovascular: Regular rhythm, no murmurs gallops or rubs Abdomen: Soft, nontender, positive bowel sounds, no flank pain reported though some mild guarding left flank Extremities: Thin build, no pitting edema, no calf tenderness, 1+ pulses x4, 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) Skin: Dry, no significant petechiae noted, no bruising, minor sores Neuro: Speech clear, face symmetric, mild resting tremor notable most at hands Psych: Anxious, slightly flat affect Data : 05/24/22 09:04 05/24/22 09:04 Other Labs: Laboratory Results WBC 9.3 10^3/uL (4.0-10.0) 05/24/22 09:04 RBC 3.61 10^6/uL (4.1-5.3) L 05/24/22 09:04 Hgb 12.6 g/dL (11.7-16.6) 05/24/22 09:04 Hct 37.4 % (42.0-52.0) L 05/24/22 09:04 MCV 103.6 fl (80-94) H 05/24/22 09:04 MCH 34.9 pg (28.0-34.0) H 05/24/22 09:04 MCHC 33.7 g/dL (30.0-36.0) 05/24/22 09:04 RDW 13.5 % (12.1-15.1) 05/24/22 09:04 Plt Count 72 10^3/cmm (130-400) L 05/24/22 09:04 MPV 11.4 fL (7.4-10.4) H 05/24/22 09:04 Neut % (Auto) 86.1 % 05/24/22 09:04 Lymph % (Auto) 2.9 % 05/24/22 09:04 Warrick % (Auto) 7.5 % 05/24/22 09:04 Eos % (Auto) 2.4 % 05/24/22 09:04 Baso % (Auto) 0.3 % 05/24/22 09:04 Neut # (Auto) 8.03 10^3/uL (1.8-7.7) H 05/24/22 09:04 Lymph # (Auto) 0.3 10^3/uL (0.8-4.8) L 05/24/22 09:04 Warrick # (Auto) 0.7 10^3/uL (0.2-0.9) 05/24/22 09:04 Eos # (Auto) 0.2 10^3/uL (0.0-0.8) 05/24/22 09:04 Baso # (Auto) 0.0 10^3/uL (0.0-0.1) 05/24/22 09:04 Nucleated RBC % (auto) 0.3 % 05/24/22 09:04 Nucleated RBCs # 0.0 /100WBC 05/24/22 09:04 Sodium 139 mmol/L (136-145) 05/24/22 09:04 Potassium 3.3 mmol/L (3.5-5.1) L 05/24/22 09:04 Chloride 82 mmol/L (98-107) L 05/24/22 09:04 Carbon Dioxide 14 mmol/L (22-29) L 05/24/22 09:04 Anion Gap 46.3 (5-19) H 05/24/22 09:04 BUN 34 mg/dL (6-20) H 05/24/22 09:04 Creatinine 4.8 mg/dL (0.7-1.2) H 05/24/22 09:04 GFR Calculation 12.9 mL/min (90-130) L 05/24/22 09:04 Glucose 162 mg/dL (65-115) H 05/24/22 09:04 Calculated Osmolality 299 mOsm/kg (285-295) H 05/24/22 09:04 Calcium 9.7 mg/dL (8.5-10.5) 05/24/22 09:04 Total Bilirubin 5.0 mg/dL (0.15-1.2) H 05/24/22 09:04 AST 179 U/L (0-40) H 05/24/22 09:04 ALT 90 U/L (0-41) H 05/24/22 09:04 Alkaline Phosphatase 150 IU/L (40-130) H 05/24/22 09:04 Ammonia 25 umol/L (16-60) 05/24/22 09:33 Total Protein 7.9 g/dL (6.6-8.7) 05/24/22 09:04 Albumin 4.1 g/dL (3.5-5.2) 05/24/22 09:04 Globulin 3.8 g/dL (1.3-4.6) 05/24/22 09:04 Lipase 5973 U/L (13-60) H 05/24/22 09:04 Urine Color Brown (Yellow) 05/24/22 10:25 Urine Appearance Cloudy (CLEAR) 05/24/22 10:25 Urine pH 5 (5-7) 05/24/22 10:25 Ur Specific Hurley 1.020 (1.005-1.030) 05/24/22 10:25 Urine Protein 3+ (Negative) H 05/24/22 10:25 Urine Glucose (UA) Norm (Normal) 05/24/22 10:25 Urine Ketones 1+ (Negative) H 05/24/22 10:25 Urine Blood 3+ (Negative) H 05/24/22 10:25 Urine Nitrate Positive (Negative) H 05/24/22 10:25 Urine Bilirubin 2+ (Negative) H 05/24/22 10:25 Urine Urobilinogen 4 mg/dL (Negative) H 05/24/22 10:25 Ur Leukocyte Esterase 1+ (Negative) H 05/24/22 10:25 Urine RBC 0-4 /hpf (0-2) H 05/24/22 10:25 Urine WBC 0-4 /hpf (0-5) H 05/24/22 10:25 Ur Squamous Epith Cells 0-4 /hpf (0-5) H 05/24/22 10:25 Amorphous Sediment 3+ /hpf 05/24/22 10:25 Urine Bacteria Trace /hpf (NONE) 05/24/22 10:25 Hyaline Casts 0-4 /lpf H 05/24/22 10:25 Fine Granular Casts 0-4 /lpf H 05/24/22 10:25 Urine Mucus 3+ /hpf 05/24/22 10:25 Urine Opiates Screen Negative ng/mL (Negative) 05/24/22 10:25 Ur Barbiturates Screen Negative ng/mL (Negative) 05/24/22 10:25 Ur Phencyclidine Scrn Negative ng/mL (Negative) 05/24/22 10:25 Ur Amphetamines Screen Negative ng/mL (Negative) 05/24/22 10:25 U Benzodiazepines Scrn Positive ng/mL (Negative) H 05/24/22 10:25 Urine Cocaine Screen Negative ng/mL (Negative) 05/24/22 10:25 U Marijuana (THC) Screen Negative ng/mL (Negative) 05/24/22 10:25 Ethyl Alcohol < 10 mg/dL (0-10) 05/24/22 09:04 A&P Assessment and plan (1) Nausea & vomiting: Secondary to #2, #3 and possibly #4 and #5 below Improved with management in ED of fluids, ativan, zofran and banana bag Status: Acute Qualifiers: Vomiting type: bilious vomiting Qualified Code(s): R11.14 - Bilious vomiting (2) Pancreatitis: Presumptively alcohol related, clinically does not appear to have associated infection or necrosis given lack of pain and other systemic signs and symptoms suggesting such but has not had imaging. No prior history of pancreatitis known to patient. Status: Acute Qualifiers: Chronicity: acute Pancreatitis type: alcohol induced Acute pancreatitis complication: unspecified Qualified Code(s): K85.20 - Alcohol induced acute pancreatitis without necrosis or infection (3) Acute renal failure: Most likely prerenal given degree of vomiting described and urinary findings but cannot rule out component of ATN. In particular I do have concerns about potential for coinciding rhabdomyolysis with 3+ blood noted but only 0-4 red blood cells. Status: Acute Qualifiers: Acute renal failure type: with other specified pathological lesion Qualified Code(s): N17.8 - Other acute kidney failure (4) High anion gap metabolic acidosis: Most likely secondary to alcoholic ketosis. Denies ingestion of ethylene glycol or other similar substance. Has hyperglycemia without a history of diabetes. Status: Acute (5) Hepatitis: Most likely alcohol related based on available information. No known history of such for the patient. Review of available records here does show significant hyperbilirubinemia at 4.1 in March of this year with elevated transaminases in similar range. Has not had any abdominal imaging or hepatitis panel at our facility previously. Currently with normal INR and PTT, low platelets Status: Acute (6) Abnormal urinalysis: Concentrated urine suggesting potential infectious process with positive nitrites and leukocyte esterase. That said patient denies any urinary symptoms other than decreased urine output as his vomiting increased. Sediment could be concentrated as well, and is also concerning for the possibility of rhabdomyoly sis. Status: Acute (7) Alcohol abuse: Chronic, currently with evidence of some withdrawal symptoms with tremors in particular. Denies any history of severe withdrawal symptoms previously, there was hoping that there was a specific withdrawal pill that we could give him. Chronically on folic acid. Status: Chronic (8) Chronic prescription benzodiazepine use: Had previously been on Xanax, currently on Klonopin. For anxiety. Has several refills from Klonopin prescription but feels like Xanax helped him more. Status: Chronic (9) Depression: Chronically on citalopram. Denies any acute worsening of his depression currently. Status: Chronic (10) Hypertension: Chronically on losartan. Status: Chronic (11) Nicotine dependence, cigarettes, uncomplicated: Smokes a pack to a pack and a half of cigarettes a day and has for many years. Status: Chronic Plan Inpatient admission IV fluids Clear liquid consistent carbohydrates currently, advancing as tolerated and per clinical course Check magnesium and CK level Add potassium and other electrolytes as indicated Continue thiamine, folate, multivitamin Check hepatitis panel Abdominal ultrasound Serum osmolality ABG Strict I's and O's Repeat electrolytes, liver function studies and lipase in the morning Empiric Rocephin Follow-up pending urine culture WA protocol, adjusted for oral Ativan only given IV Ativan shortage We will continue home Klonopin dosing for basal benzodiazepine currently Continue citalopram Hold losartan Monitor blood pressures Nicotine patch as needed SCDs for DVT prophylaxis Currently holding pharmacological DVT prophylaxis secondary to home prescription for Carafate for somewhat unclear reason, frequent vomiting and thrombocytopenia increasing potential risk of bleeding, would like to evaluate patient's response to treatment and clinical course before considering further social human services assistants to assist with follow-up, no local primary care provider, and for information about alcohol rehabilitation resources locally Supportive care otherwise Reviewed with patient options for alcoholics anonymous. He resides in [place] recommended that he check that area as a potential free source to help him with achieving sobriety versus discussing other options for alcohol rehabilitation with provider once established. Findings, concerns and plans were discussed with patient and he was given an opportunity to ask questions. We discussed the fact that alcohol is likely the contributor to everything going on right now but we will see how his labs and everything improved with treatment. Full code Attestations Medical Necessity Statement*: Anticipated stay greater than 2 midnights with gentleman known to drink regularly presenting with acute renal failure evidence of hepatitis likely chronic, as well as pancreatitis which clinically appears acute rather than chronic despite lack of pain. He has significant anion gap acidosis and is more than 24 hours from last alcohol intake. At high risk of acute alcohol withdrawal in addition to morbidity from acute as well as chronic conditions listed above. Plans are as indicated. Coding Level of Care Code Acute Group Fitness Manager for Maryam [facility]as Diagnoses Nausea & vomiting R11.14 Vomiting type: bilious vomiting Pancreatitis K85.20 Chronicity: acute Pancreatitis type: alcohol induced Acute pancreatitis complication: unspecified Acute renal failure N17.8 Acute renal failure type: with other specified pathological lesion High anion gap metabolic acidosis E87.2 Hepatitis K75.9 Abnormal urinalysis R82.90 Alcohol abuse F10.10 Chronic prescription benzodiazepine use Z79.899 Depression F32.A Hypertension I10 Nicotine dependence, cigarettes, uncomplicated F17.210
[2022-05-24 14:14] LABS: INR 0.97 (0.8-1.2)
--- NOTE | 2022-05-24 14:56 | US_ITS ---
WS: [id number] ULTRASOUND ABDOMEN CLINICAL INFORMATION: nausea/vomiting COMPARISON: None. FINDINGS: Liver Size: Enlarged Craniocaudal length: 17.5 cm. Echogenicity: Coarse Surface nodularity: None. Mass (size and location): None. Bile ducts Intrahepatic ducts: Normal. Common bile duct diameter: 0.4 cm. Gallbladder Sludge Gallstones: None. Gallbladder sludge: Present Gallbladder wall thickening: None. Pericholecystic fluid: None. Sonographic Rice sign: Absent. Pancreas Hypoechoic Spleen Splenomegaly: None. Craniocaudal length: 9.7 cm. Right kidney: Normal. Hydronephrosis: None. Size: 11.4 cm x 6.0 cm x 6.1 cm Left kidney: Normal. Hydronephrosis: None. Size: 11.4 cm x 5.9 cm x 5.9 cm. Abdominal aorta and IVC Visualized portions are normal. Ascites: None. US/US abdomen complete* [id number] IMPRESSION: 1. Hepatomegaly with coarse echogenicity compatible with hepatocellular diseas e. Recommend correlation with liver function studies. 2. Hypoechoic pancreas suspicious for pancreatitis. Recommend correlation with pancreatic enzymes. 3. Gallbladder sludge. No gallbladder wall thickening or pericholecystic fluid . 4. Normal common bile duct. 5. No hydronephrosis in either kidney.
[2022-05-24 15:52] LABS: Creatine Phosphokinase 92 U/L (39-308); Magnesium 1.9 mg/dL (1.7-2.3)
[2022-05-24] MEDS: cefTRIAXone 1,000 MG in sodium chloride 0.9% (plus) 50 ML 100 MG IV (16:00)
[2022-05-24 16:11] LABS: Ketone (Acetest) Serum Positive (Negative)
[2022-05-24 16:19] LABS: Hepatitis A Antibody IgM Non-Reactive (Nonreactive); Hepatitis B Core IgM Non-Reactive (Nonreactive); Hepatitis B Surface Antigen Non-Reactive (Nonreactive); Hepatitis C Virus Antibody Non-Reactive (Nonreactive)
[2022-05-24] MEDS: sucralfate 1 gm Tablet PO (16:27)
[2022-05-24] MEDS: nicotine 21 mg Patch 1 PATCH TRANSDERMA (16:27)
[2022-05-24 16:36] LABS: ABG PCO2 29.8 mmHg (35-45); ABG PH Result 7.38 (7.35-7.45); Arterial Blood Gas Hematocrit 33.4 % (42-52); Base Excess ABG -6.2 mmol/L (-2.0-2.0); Blood Gas Operator Identificat GD; Blood Gas Sample Site Brachial, right; Blood Gas Sample Type Arterial; Carboxyhemoglobin 1.6 %THgb (0.4-20.1); HCO3 ABG 17.8 mmol/L (22-26); HGB O2 Sat 91.2 % (95-100); Ionized Calcium Level - ABG 1.1 mmol/L (1.1-1.4); Methemoglobin 1.2 % (0.4-1.5); Oxygen Device ROOM AIR; Oxygen Saturation ABG 93.9; PO2 ABG 65.3 mmHg (80.0-100.0); Potassium Level - ABG 3.1 mmol/L (3.5-5.0); Total Hemoglobin 10.9 g/dL (14-18)
[2022-05-24 17:24] LABS: Glucose Point of Care 96 mg/dL (70-110)
[2022-05-24] MEDS: potassium chloride premix 40 MEQ/100 ML PREMIX 25 MEQ IV (18:22)
[2022-05-24] MEDS: sodium chloride 0.9% 1,000 ML 100 ML IV (18:22)
[2022-05-24 18:33] LABS: Glucose Point of Care 123 mg/dL (70-110)
[2022-05-24] MEDS: pantoprazole DR 40 mg Tablet PO (18:39)
[2022-05-24] MEDS: olopatadine 0.1% Op Soln 5 mL Btl 1 DROP EYE-BOTH (18:48)
[2022-05-24] MEDS: citalopram 20 mg Tablet PO (20:50)
[2022-05-24] MEDS: CLONazepam 0.5 mg Tablet PO (20:50)
[2022-05-24 23:26] LABS: Glucose Point of Care 107 mg/dL (70-110)
[2022-05-25] VITALS (10 sets, daily range): BP systolic 112–141; BP diastolic 77–90; PULSE 81–104; RESP 12–22; TEMP 36.6–37.1; O2SAT 96–99
[2022-05-25] MEDS: sodium chloride 0.9% 1,000 ML 100 ML IV ×2 (04:17→15:06)
[2022-05-25 05:38] LABS: Basophils % 0.2 %; Eosinophils # 0.1 10^3/uL (0.0-0.8); Eosinophils % 1.1 %; Hematocrit 25.9 % (42.0-52.0); Hemoglobin 9.3 g/dL (11.7-16.6); Lymphocytes # 0.4 10^3/uL (0.8-4.8); Lymphocytes % 8.8 %; Mean Corpuscular HGB Conc 35.9 g/dL (30.0-36.0); Mean Corpuscular Hemoglobin 35.2 pg (28.0-34.0); Mean Corpuscular Volume 98.1 fl (80-94); Monocytes # 0.5 10^3/uL (0.2-0.9); Monocytes % 10.5 %; Neutrophils # 3.67 10^3/uL (1.8-7.7); Neutrophils % 78.5 %; Nucleated Red Blood Cells % 0 %; Platelet Count 31 10^3/cmm (130-400); Red Blood Count 2.64 10^6/uL (4.1-5.3); Red Cell Distribution Width 13.3 % (12.1-15.1); White Blood Count 4.7 10^3/uL (4.0-10.0)
[2022-05-25 06:02] LABS: Estmated Average Glucose 91; Hemoglobin A1C 4.8 % (4.0-6.0)
[2022-05-25] MEDS: sucralfate 1 gm Tablet PO ×3 (06:02→17:25)
[2022-05-25 06:07] LABS: Alanine Aminotransferase 63 U/L (0-41); Albumin Level 3.3 g/dL (3.5-5.2); Alkaline Phosphatase 113 IU/L (40-130); Anion Gap 23.2 (5-19); Aspartate Amino Transferase 129 U/L (0-40); Blood Urea Nitrogen 41 mg/dL (6-20); Calcium 7.7 mg/dL (8.5-10.5); Carbon Dioxide 16 mmol/L (22-29); Chloride 101 mmol/L (98-107); Globulin 2.8 g/dL (1.3-4.6); Glucose 91 mg/dL (65-115); Magnesium 1.5 mg/dL (1.7-2.3); Osmolality Calculated 294 mOsm/kg (285-295); Potassium 3.2 mmol/L (3.5-5.1); Sodium 137 mmol/L (136-145); Total Bilirubin 1.8 mg/dL (0.15-1.2); Total Protein 6.1 g/dL (6.6-8.7)
[2022-05-25 06:13] LABS: Lipase 1524 U/L (13-60)
[2022-05-25 06:18] LABS: Phosphorus 0.9 mg/dL (2.5-4.5)
[2022-05-25] MEDS: pantoprazole DR 40 mg Tablet PO ×2 (09:57→17:25)
[2022-05-25] MEDS: folic acid 1 mg Tablet PO (09:57)
[2022-05-25] MEDS: thiamine 100 mg Tablet PO (09:57)
[2022-05-25] MEDS: multivitamin therapeutic Tablet 1 TAB PO (09:57)
[2022-05-25] MEDS: CLONazepam 0.5 mg Tablet PO ×2 (10:03→22:43)
[2022-05-25] MEDS: olopatadine 0.1% Op Soln 5 mL Btl 1 DROP EYE-BOTH ×2 (10:03→17:25)
[2022-05-25 10:26] LABS: Glucose Point of Care 101 mg/dL (70-110)
--- NOTE | 2022-05-25 10:28 | PC.CHAP ---
Pastoral Care Encounter/Spiritual Assessment Type of Contact [] Declined cnc lathe machine operator visit [] Patient/Family/Request visit [] Outpatient visit [] Follow-up visit [] Physician referral [] Code/Alert [x] Routine visit [] Staff referral [] Actively dying [] Patient sleeping [] Family support [] [] Out of room [] Palliative care [] [] Receiving care in room [] Pre-surgical visit [] Trauma [] Long length of stay [] ICU visit [] Other: Relational/Emotional Strength [x] Patient feels connected with others/family/visitors/staff [] Distress [] Loneliness/isolation [] Abandonment Spirituality of Patient [x] Person of Angella [] Attends Church of their Angella [x] Believes in Prayer [] Reads Bible or Temple materials [] There are Spiritual issues to be addressed Water Resources Engineer Interventions [x] Prayer xActive listening [x] Non-anxious presence [x] Spiritual/emotional support [] Crisis/trauma care [x] Spiritual counseling [] Bereavement support [] Provided bereavement packet [] Provided Bible/devotional materials [] Provided toy/stuffed animal, coloring book to patient or family member [] Provided Communion [] Anointing/[place] [] Salvation [x] Completed spiritual assessment [] Other: Impact on Illness or Injury [] Angry [] Fearful [] Anxious [] Often cries [] Exhaustion [] Unable to work [] Unable to attend restorationism [] Unable to walk/stand [] Unable to read [] Unable to drive [] Unable to eat/drink [] Unable to sleep [] Unable to be with family [] Patient intubated [] Other: Summary Time spent with patient 10 min
[2022-05-25] MEDS: magnesium sulfate premix 2 GM/50 ML PIGGYBACK IV (11:55)
[2022-05-25 12:26] LABS: Glucose Point of Care 85 mg/dL (70-110)
--- NOTE | 2022-05-25 14:10 | PC.NURSE ---
Called back to give update and no answer
[2022-05-25] MEDS: cefTRIAXone 1,000 MG in sodium chloride 0.9% (plus) 50 ML 100 MG IV (15:06)
[2022-05-25 17:06] LABS: Glucose Point of Care 93 mg/dL (70-110)
--- NOTE | 2022-05-25 19:19 | P.PN_ITS ---
Subjective Subjective: He is today feeling little bit better. Nausea has improved. He did tolerate some of his clear liquid diet, although appetite was not the best. For now he would prefer to stick with it rather than upgrade just yet. Pain improving. So far no symptoms of withdrawal. Last drink was 2 days ago. Vitals/I&O/Wt Last Vital Signs Temp 97.8 F 05/25/22 19:15 Pulse 82 05/25/22 19:15 Resp 18 05/25/22 19:15 BP 141/90 05/25/22 19:15 Pulse Ox 99 05/25/22 19:15 O2 Del Method 05/25/22 19:15 05/25/22 05/25/22 05/25/22 06:59 14:59 22:59 Intake Total 991.667 / 4349.867 1470 / 1470 170 / 1640 Output Total 0 / 0 100 / 100 125 / 225 Balance 991.667 / 4349.867 1370 / 1370 45 / 1415 Weight last 48 hrs Weight 57.47 kg Weight 68.039 kg Physical Exam Const: COMMON NORMALS: patient oriented x3 and alert GENERAL APPEARANCE: cooperative ORIENTATION/CONSCIOUSNESS: Yes awake HENMT: COMMON NORMALS: oropharynx normal Neck/C-Spine: COMMON NORMALS: no JVD Resp: COMMON NORMALS: normal respiratory effort and clear to auscultation bi laterally AUSCULTATION: clear to auscultation bilaterally Cardio: COMMON NORMALS: no JVD, regular rhythm, S1 normal heart sound present, S2 normal heart sound present and No murmurs present (Cardio) RHYTHM: regular rhythm HEART SOUNDS: S1 normal heart sound present and S2 normal heart sound present GI: COMMON NORMALS: Normal to inspection, nondistended, normoactive bowel sounds present, Soft to palpation and non-tender PALPATION: Yes Soft to palpation Extremity: COMMON NORMALS: no joint enlargement and no pedal edema Neuro: COMMON NORMALS: patient oriented x3 and moves all extremities SENSORIUM/ORIENTATION: Yes alert Skin: COMMON NORMALS: no rashes or lesions noted GENERAL SKIN EXAM: no rashes or lesions noted Data : 05/25/22 04:50 05/25/22 04:50 Micro: Microbiology 05/24/22 10:25 Urine Culture - Preliminary Urine,Clean Catch A&P Assessment and plan (1) Pancreatitis: Lipase improving. Symptoms improving. Follow-up lipase. Continue IV hydration. Appetite is still not Giurgius continue clear liquids for now. Advance as tolerating. Discussed with case management to help him with options for EtOH rehabilitation. Presumptively alcohol related, clinically does not appear to have associated infection or necrosis given lack of pain and other systemic signs and symptoms suggesting such but has not had imaging. No prior history of pancreatitis known to patient. Status: Acute Qualifiers: Chronicity: acute Pancreatitis type: alcohol induced Acute pancreatitis complication: unspecified Qualified Code(s): K85.20 - Alcohol induced acute pancreatitis without necrosis or infection (2) Nausea & vomiting: Improving. Continue symptomatic management. Status: Acute Qualifiers: Vomiting type: bilious vomiting Qualified Code(s): R11.14 - Bilious vomiting (3) Acute renal failure: Gradually improving, creatinine down to 4. Continue fluid challenge/hydration. Most likely prerenal given degree of vomiting described and urinary findings but cannot rule out component of ATN. In particular I do have concerns about potential for coinciding rhabdomyolysis with 3+ blood noted but only 0-4 red blood cells. Status: Acute Qualifiers: Acute renal failure type: with other specified pathological lesion Qualified Code(s): N17.8 - Other acute kidney failure (4) High anion gap metabolic acidosis: Improved. Continue IV fluid. Monitor renal function. Most likely secondary to alcoholic ketosis. Denies ingestion of ethylene glycol or other similar substance. Has hyperglycemia without a history of diabetes. Status: Acute (5) Hepatitis: Alcoholic hepatitis. Improving. Most likely alcohol related based on available information. No known history of such for the patient. Review of available records here does show significant hyperbilirubinemia at 4.1 in March of this year with elevated transaminases in similar range. Has not had any abdominal imaging or hepatitis panel at our facility previously. Status: Acute (6) Abnormal urinalysis: Concentrated urine suggesting potential infectious process with positive nitrites and leukocyte esterase. That said patient denies any urinary symptoms other than decreased urine output as his vomiting increased. Sediment could be concentrated as well, and is also concerning for the possibility of rhabdomyolysis. Status: Acute (7) Alcohol abuse: Monitor for withdrawal. Last drink 2 days ago. Replace hypomagnesemia. Appreciate case management assistance with options for EtOH rehabilitation. Status: Chronic (8) Chronic prescription benzodiazepine use: Had previously been on Xanax, currently on Klonopin. For anxiety. Has several refills from Klonopin prescription but feels like Xanax helped him more. Status: Chronic (9) Depression: Chronically on citalopram. Status: Chronic (10) Hypertension: Chronically on losartan. Status: Chronic (11) Nicotine dependence, cigarettes, uncomplicated: Smokes a pack to a pack and a half of cigarettes a day and has for many years. Status: Chronic Plan Hypomagnesemia: Replace Attestations Medical Necessity Statement*: Continue admission for assessment of management of acute pancreatitis, IV fluid challenge due to TOO, metabolic acidosis. Replace electrolytes. Monitor for alcohol withdrawal. Coding Level of Care Code Acute Supervisor [employer] for [employer] Canas Diagnoses Pancreatitis K85.20 Chronicity: acute Pancreatitis type: alcohol induced Acute pancreatitis complication: unspecified Nausea & vomiting R11.14 Vomiting type: bilious vomiting Acute renal failure N17.8 Acute renal failure type: with other specified pathological lesion High anion gap metabolic acidosis E87.2 Hepatitis K75.9 Abnormal urinalysis R82.90 Alcohol abuse F10.10 Chronic prescription benzodiazepine use Z79.899 Depression F32.A Hypertension I10 Nicotine dependence, cigarettes, uncomplicated F17.210
[2022-05-25 21:01] LABS: Glucose Point of Care 93 mg/dL (70-110)
[2022-05-25] MEDS: LORazepam 2 mg Tablet PO (22:43)
[2022-05-25] MEDS: citalopram 20 mg Tablet PO (22:43)
[2022-05-25] MEDS: nicotine 21 mg Patch 1 PATCH TRANSDERMA (22:43)
[2022-05-26] VITALS: BP 127/86; PULSE 104; RESP 18; TEMP 36.7; O2SAT 99
--- NOTE | 2022-05-26 00:16 | PC.NURSE ---
i reported high pulse 104 to nurse
[2022-05-26] MEDS: sodium chloride 0.9% 1,000 ML 100 ML IV ×2 (02:42→16:11)
[2022-05-26 04:00] VITALS: BP 144/89; PULSE 80; RESP 18; TEMP 36.9; O2SAT 99
[2022-05-26] MEDS: LORazepam 2 mg Tablet PO (04:01)
[2022-05-26 04:28] LABS: Basophils % 0.4 %; Eosinophils # 0.1 10^3/uL (0.0-0.8); Eosinophils % 1.5 %; Hematocrit 25.7 % (42.0-52.0); Hemoglobin 8.6 g/dL (11.7-16.6); Lymphocytes # 0.4 10^3/uL (0.8-4.8); Lymphocytes % 7.5 %; Mean Corpuscular HGB Conc 33.5 g/dL (30.0-36.0); Mean Corpuscular Hemoglobin 34.8 pg (28.0-34.0); Mean Platelet Volume 13.3 fL (7.4-10.4); Monocytes # 0.5 10^3/uL (0.2-0.9); Monocytes % 10.7 %; Neutrophils # 3.77 10^3/uL (1.8-7.7); Neutrophils % 78.9 %; Nucleated Red Blood Cells % 0 %; Platelet Count 35 10^3/cmm (130-400); Red Blood Count 2.47 10^6/uL (4.1-5.3); Red Cell Distribution Width 13.6 % (12.1-15.1); White Blood Count 4.8 10^3/uL (4.0-10.0)
[2022-05-26 04:48] LABS: Alanine Aminotransferase 61 U/L (0-41); Albumin Level 3.2 g/dL (3.5-5.2); Alkaline Phosphatase 140 IU/L (40-130); Aspartate Amino Transferase 120 U/L (0-40); Blood Urea Nitrogen 38 mg/dL (6-20); Calcium 8.4 mg/dL (8.5-10.5); Carbon Dioxide 17 mmol/L (22-29); Chloride 99 mmol/L (98-107); Globulin 2.9 g/dL (1.3-4.6); Glomerular Filtration Rate 24.1 mL/min (90-130); Glucose 91 mg/dL (65-115); Magnesium 1.7 mg/dL (1.7-2.3); Osmolality Calculated 289 mOsm/kg (285-295); Sodium 135 mmol/L (136-145); Total Bilirubin 1.5 mg/dL (0.15-1.2); Total Protein 6.1 g/dL (6.6-8.7)
[2022-05-26 04:59] LABS: Lipase 753 U/L (13-60)
[2022-05-26] MEDS: sucralfate 1 gm Tablet PO ×2 (06:03→11:20)
[2022-05-26 06:39] LABS: Glucose Point of Care 89 mg/dL (70-110)
[2022-05-26 07:37] VITALS: BP 153/86; PULSE 79; RESP 17; TEMP 36.9; O2SAT 99
--- NOTE | 2022-05-26 07:47 | PC.NURSE ---
Shift Summary Patient has progressively scored higher and higher on his CIWA protocol, despite ativan given. Patient is able to answer his orientation questions appropriately, but then will start talking to someone else and responding to someone else's voice. Patient has started becoming progressively more fidgety and restless. Patient ripped out one IV tonight tracking blood from bathroom to bathroom sink and was trying to wash it away instead of applying pressure. Patient also ripped his IV tubing, tracking blood from window throughout the room and into the bathroom. Patient was redirected and placed into bed with the bed alarm on. Patient tried multiple times getting out of bed without calling for help, stating, I'm going to go help my mom, she's calling for help, I'm getting up to get dressed for [employer] . Patient grew more and more agitated throughout the night, stating he doesn't need someone busting up into his room each time he has to use the bathroom and began using profanity.
[2022-05-26 08:29] LABS: Osmolality Serum 326 mOsm/kg (278-305)
[2022-05-26] MEDS: CLONazepam 0.5 mg Tablet PO ×2 (09:00→20:24)
[2022-05-26] MEDS: thiamine 100 mg Tablet PO (09:00)
[2022-05-26] MEDS: multivitamin therapeutic Tablet 1 TAB PO (09:00)
[2022-05-26] MEDS: pantoprazole DR 40 mg Tablet PO (09:00)
[2022-05-26] MEDS: folic acid 1 mg Tablet PO (09:00)
[2022-05-26] MEDS: potassium chloride ER 20 mEq Tablet 40 MEQ PO (09:04)
[2022-05-26] MEDS: magnesium sulfate premix 2 GM/50 ML PIGGYBACK IV (09:06)
[2022-05-26 11:05] VITALS: BP 138/83; PULSE 88; RESP 16; TEMP 36.8; O2SAT 100
[2022-05-26 11:42] LABS: Glucose Point of Care 92 mg/dL (70-110)
[2022-05-26 15:26] VITALS: BP 149/88; PULSE 85; RESP 17; TEMP 36.8; O2SAT 99
[2022-05-26] MEDS: chlordiazePOXIDE 25 mg Capsule 50 MG PO (16:09)
[2022-05-26] MEDS: cefTRIAXone 1,000 MG in sodium chloride 0.9% (plus) 50 ML 100 MG IV (16:11)
--- NOTE | 2022-05-26 16:25 | P.PN_ITS ---
Subjective Subjective: This morning he was noted to be more anxious, hallucinating. His other symptoms are improving with improving/resolving abdominal pain. Resolving nausea and vomiting. Overnight scored high on CIWA protocol. Vitals/I&O/Wt Last Vital Signs Temp 98.2 F 05/26/22 15:26 Pulse 85 05/26/22 15:26 Resp 17 05/26/22 15:26 BP 149/88 05/26/22 15:26 Pulse Ox 99 05/26/22 15:26 O2 Del Method 05/26/22 15:26 05/26/22 05/26/22 05/26/22 06:59 14:59 22:59 Intake Total 1000 / 2880 1770 / 1770 Output Total 430 / 655 600 / 600 Balance 570 / 2225 1170 / 1170 Physical Exam Const: COMMON NORMALS: patient oriented x3 and alert GENERAL APPEARANCE: cooperative ORIENTATION/CONSCIOUSNESS: Yes awake OTHER: Anxious HENMT: COMMON NORMALS: oropharynx normal Neck/C-Spine: COMMON NORMALS: no JVD Resp: COMMON NORMALS: normal respiratory effort and clear to auscultation bilaterally AUSCULTATION: clear to auscultation bilaterally Cardio: COMMON NORMALS: no JVD, regular rhythm, S1 normal heart sound present, S2 normal heart sound present and No murmurs present (Cardio) RHYTHM: regular rhythm HEART SOUNDS: S1 normal heart sound present and S2 normal heart sound present GI: COMMON NORMALS: Normal to inspection, nondistended, normoactive bowel sounds present, Soft to palpation and non-tender PALPATION: Yes Soft to palpation Extremity: COMMON NORMALS: no joint enlargement and no pedal edema Neuro: COMMON NORMALS: patient oriented x3 and moves all extremities SENSORIUM/ORIENTATION: Yes alert OTHER: Tremulous Skin: COMMON NORMALS: no rashes or lesions noted GENERAL SKIN EXAM: no rashes or lesions noted Data : 05/26/22 04:18 05/26/22 04:18 Micro: Microbiology 05/24/22 10:25 Urine Culture - Final Urine,Clean Catch A&P Assessment and plan (1) Alcohol withdrawal: He appears to be in severe withdrawal with hallucinations, anxiety. Add Librium. Continue Ativan per CIDE protocol. He also continues on his home Klonopin. Continue to monitor. Continue supportive care. Status: Acute (2) Pancreatitis: Symptomatically and clinically continues to improve. We will reduce IV fluid rate. Advance to full liquids. Lipase improving. Symptoms improving. Follow-up lipase. Continue IV hydration. Appetite is still not Giurgius continue clear liquids for now. Advance as tolerating. Discussed with case management to help him with options for EtOH rehabilitation. Presumptively alcohol related, clinically does not appear to have associated infection or necrosis given lack of pain and other systemic signs and symptoms suggesting such but has not had imaging. No prior history of pancreatitis known to patient. Status: Acute Qualifiers: Chronicity: acute Pancreatitis type: alcohol induced Acute pancreatitis complication: unspecified Qualified Code(s): K85.20 - Alcohol induced acute pancreatitis without necrosis or infection (3) Nausea & vomiting: Improving. Continue symptomatic management. Status: Acute Qualifiers: Vomiting type: bilious vomiting Qualified Code(s): R11.14 - Bilious vomiting (4) Acute renal failure: Gradually improving, creatinine coming down. Continue fluid chal lenge/hydration. Most likely prerenal given degree of vomiting described and urinary findings but cannot rule out component of ATN. In particular I do have concerns about potential for coinciding rhabdomyolysis with 3+ blood noted but only 0-4 red blood cells. Status: Acute Qualifiers: Acute renal failure type: with other specified pathological lesion Qualified Code(s): N17.8 - Other acute kidney failure (5) High anion gap metabolic acidosis: Improved. Reduce IV fluid. Monitor renal function. Most likely secondary to alcoholic ketosis. Denies ingestion of ethylene glycol or other similar substance. Has hyperglycemia without a history of diabetes. Status: Acute (6) Hepatitis: Alcoholic hepatitis. Improving. Most likely alcohol related based on available information. No known history of such for the patient. Review of available records here does show significant hyperbilirubinemia at 4.1 in March of this year with elevated transaminases in similar range. Has not had any abdominal imaging or hepatitis panel at our facility previously. Status: Acute (7) Abnormal urinalysis: So far no growth on urine culture. If continues to do well, stop antibiotic. Status: Acute (8) Alcohol abuse: Monitor for withdrawal. Last drink 2 days ago. Replace hypomagnesemia. Appreciate case management assistance with options for EtOH rehabilitation. Status: Chronic (9) Chronic prescription benzodiazepine use: Had previously been on Xanax, currently on Klonopin. For anxiety. Has several refills from Klonopin prescription but feels like Xanax helped him more. Status: Chronic (10) Depression: Chronically on citalopram. Status: Chronic (11) Hypertension: Chronically on losartan. Status: Chronic (12) Nicotine dependence, cigarettes, uncomplicated: Smokes a pack to a pack and a half of cigarettes a day and has for many years. Status: Chronic (13) Thrombocytopenia: With suspect most likely EtOH induced. It is now improving. Continue to encourage alcohol cessation. Monitor platelet levels. No anticoagulation for VT prophylaxis. Status: Acute Plan Hypomagnesemia: Replace Attestations Medical Necessity Statement*: Continue admission for assessment management of severe alcohol withdrawal. Coding Level of Care Code Acute Director Of Public Safety for [facility] Fwd Diagnoses Alcohol withdrawal F10.939 Pancreatitis K85.20 Chronicity: acute Pancreatitis type: alcohol induced Acute pancreatitis complication: unspecified Nausea & vomiting R11.14 Vomiting type: bilious vomiting Acute renal failure N17.8 Acute renal failure type: with other specified pathological lesion High anion gap metabolic acidosis E87.2 Hepatitis K75.9 Abnormal urinalysis R82.90 Alcohol abuse F10.10 Chronic prescription benzodiazepine use Z79.899 Depression F32.A Hypertension I10 Nicotine dependence, cigarettes, uncomplicated F17.210 Thrombocytopenia D69.6
[2022-05-26 17:14] LABS: Glucose Point of Care 85 mg/dL (70-110)
[2022-05-26] MEDS: citalopram 20 mg Tablet PO (20:24)
[2022-05-26 20:35] VITALS: BP 135/85; PULSE 84; RESP 20; TEMP 37.1; O2SAT 100
[2022-05-26 21:30] LABS: Glucose Point of Care 103 mg/dL (70-110)
[2022-05-27 00:54] VITALS: BP 136/80; PULSE 77; RESP 17; TEMP 36.9; O2SAT 100
[2022-05-27 04:13] LABS: Basophils % 0.5 %; Eosinophils # 0.1 10^3/uL (0.0-0.8); Eosinophils % 0.7 %; Hematocrit 26.5 % (42.0-52.0); Hemoglobin 8.8 g/dL (11.7-16.6); Lymphocytes # 0.4 10^3/uL (0.8-4.8); Lymphocytes % 5.3 %; Mean Corpuscular HGB Conc 33.2 g/dL (30.0-36.0); Mean Corpuscular Hemoglobin 34.2 pg (28.0-34.0); Mean Corpuscular Volume 103.1 fl (80-94); Mean Platelet Volume 11.7 fL (7.4-10.4); Monocytes % 12.4 %; Neutrophils # 6.17 10^3/uL (1.8-7.7); Neutrophils % 80.3 %; Nucleated Red Blood Cells % 0 %; Platelet Count 86 10^3/cmm (130-400); Red Blood Count 2.57 10^6/uL (4.1-5.3); Red Cell Distribution Width 13.8 % (12.1-15.1); White Blood Count 7.7 10^3/uL (4.0-10.0)
[2022-05-27 04:45] LABS: Alanine Aminotransferase 61 U/L (0-41); Albumin Level 3.3 g/dL (3.5-5.2); Alkaline Phosphatase 177 IU/L (40-130); Anion Gap 22.8 (5-19); Aspartate Amino Transferase 105 U/L (0-40); Blood Urea Nitrogen 28 mg/dL (6-20); Calcium 8.5 mg/dL (8.5-10.5); Carbon Dioxide 19 mmol/L (22-29); Chloride 101 mmol/L (98-107); Glomerular Filtration Rate 49.5 mL/min (90-130); Glucose 91 mg/dL (65-115); Magnesium 1.5 mg/dL (1.7-2.3); Osmolality Calculated 295 mOsm/kg (285-295); Sodium 140 mmol/L (136-145); Total Bilirubin 1.2 mg/dL (0.15-1.2); Total Protein 6.3 g/dL (6.6-8.7)
[2022-05-27 04:52] LABS: Potassium 2.8 mmol/L (3.5-5.1)
[2022-05-27 04:55] LABS: Lipase 567 U/L (13-60)
[2022-05-27 05:50] VITALS: BP 134/87; PULSE 78; RESP 18; TEMP 36.9; O2SAT 100
[2022-05-27] MEDS: magnesium sulfate premix 2 GM/50 ML PIGGYBACK IV (05:53)
[2022-05-27] MEDS: sucralfate 1 gm Tablet PO ×3 (06:10→18:38)
[2022-05-27] MEDS: potassium chloride ER 20 mEq Tablet 40 MEQ PO (06:10)
[2022-05-27 06:44] LABS: Glucose Point of Care 119 mg/dL (70-110)
[2022-05-27] MEDS: potassium chloride premix 100 ML 25 MEQ IV (07:00)
[2022-05-27 07:26] VITALS: BP 136/85; PULSE 79; RESP 12; TEMP 36.8; O2SAT 99
[2022-05-27] MEDS: olopatadine 0.1% Op Soln 5 mL Btl 1 DROP EYE-BOTH ×2 (09:02→18:38)
[2022-05-27] MEDS: CLONazepam 0.5 mg Tablet PO ×2 (09:04→22:03)
[2022-05-27] MEDS: multivitamin therapeutic Tablet 1 TAB PO (09:04)
[2022-05-27] MEDS: folic acid 1 mg Tablet PO (09:04)
[2022-05-27] MEDS: chlordiazePOXIDE 25 mg Capsule 50 MG PO (09:04)
[2022-05-27] MEDS: pantoprazole DR 40 mg Tablet PO ×2 (09:05→18:39)
[2022-05-27] MEDS: thiamine 100 mg Tablet PO (09:05)
[2022-05-27] MEDS: sodium chloride 0.9% 1,000 ML 100 ML IV (11:07)
[2022-05-27 11:33] LABS: Glucose Point of Care 106 mg/dL (70-110)
[2022-05-27 11:56] VITALS: BP 136/90; PULSE 83; RESP 16; O2SAT 100
--- NOTE | 2022-05-27 13:52 | P.PN_ITS ---
Subjective Subjective: He is feeling a little bit better. He is calmer. He is oriented x3. Nausea so far has resolved. He stated he is eating. Vitals/I&O/Wt Last Vital Signs Temp 98.2 F 05/27/22 07:26 Pulse 83 05/27/22 11:56 Resp 16 05/27/22 11:56 BP 136/90 05/27/22 11:56 Pulse Ox 100 05/27/22 11:56 O2 Del Method 05/27/22 11:56 05/26/22 05/27/22 05/27/22 22:59 06:59 14:59 Intake Total 110 / 1880 1650 / 3530 100 / 100 Balance 110 / 1280 1650 / 2930 100 / 100 Physical Exam Const: COMMON NORMALS: patient oriented x3 and alert GENERAL APPEARANCE: cooperative ORIENTATION/CONSCIOUSNESS: Yes awake OTHER: Calmer HENMT: COMMON NORMALS: oropharynx normal Neck/C-Spine: COMMON NORMALS: no JVD Resp: COMMON NORMALS: normal respiratory effort and clear to auscultation bilaterally AUSCULTATION: clear to auscultation bilaterally Cardio: COMMON NORMALS: no JVD, regular rhythm, S1 normal heart sound present, S2 normal heart sound present and No murmurs present (Cardio) RHYTHM: regular rhythm HEART SOUNDS: S1 normal heart sound present and S2 normal heart sound present GI: COMMON NORMALS: Normal to inspection, nondistended, normoactive bowel sounds present, Soft to palpation and non-tender PALPATION: Yes Soft to palpation Extremity: COMMON NORMALS: no joint enlargement and no pedal edema Neuro: COMMON NORMALS: patient oriented x3 and moves all extremities SENSORIUM/ORIENTATION: Yes alert Skin: COMMON NORMALS: no rashes or lesions noted GENERAL SKIN EXAM: no rashes or lesions noted Data : 05/27/22 03:55 05/27/22 03:55 A&P Assessment and plan (1) Alcohol withdrawal: This appears to be improving. Mental status is improving. He is significantly still hypomagnesemic, hypokalemic. Replace. Continue Librium. Klonopin. Continue to monitor. Continue supportive care. Discontinue one-to-one sitter. In case continues to improve, possibly may plan for discharge home tomorrow. Provided with options for EtOH rehabilitation. Status: Acute (2) Pancreatitis: Continues to improve. Advance to full liquids. Stop IVF. Lipase improving. Symptoms improving. Follow-up lipase. Continue IV hydration. Appetite is still not Giurgius continue clear liquids for now. Advance as tolerating. Discussed with case management to help him with options for EtOH rehabilitation. Presumptively alcohol related, clinically does not appear to have associated infection or necrosis given lack of pain and other systemic signs and symptoms suggesting such but has not had imaging. No prior history of pancreatitis known to patient. Status: Acute Qualifiers: Chronicity: acute Pancreatitis type: alcohol induced Acute pancreatitis complication: unspecified Qualified Code(s): K85.20 - Alcohol induced acute pancreatitis without necrosis or infection (3) Nausea & vomiting: Resolved. Continue symptomatic management. Status: Acute Qualifiers: Vomiting type: bilious vomiting Qualified Code(s): R11.14 - Bilious vomiting (4) Acute renal failure: Improving. Oral intake improving. Stop IVF. Recheck renal function. If continues to improve, possibly discharge tomorrow. Most likely prerenal given degree of vomiting described and urinary findings but cannot rule out component of ATN. In particular I do have concerns about potential for coinciding rhabdomyolysis with 3+ blood noted but only 0-4 red blood cells. Status: Acute Qualifiers: Acute renal failure type: with other specified pathological lesion Qualified Code(s): N17.8 - Other acute kidney failure (5) High anion gap metabolic acidosis: Improving. Anion gap still 20.9, bicarb better at 19. Stop IVF. Monitor renal function. Most likely secondary to alcoholic ketosis. Denies ingestion of ethylene glycol or other similar substance. Has hyperglycemia without a history of diabetes. Status: Acute (6) Hepatitis: Alcoholic hepatitis. Improving. Most likely alcohol related based on available information. No known history of such for the patient. Review of available records here does show significant hyperbilirubinemia at 4.1 in March of this year with elevated transaminases in similar range. Has not had any abdominal imaging or hepatitis panel at our facility previously. Status: Acute (7) Abnormal urinalysis: So far no growth on urine culture. Stop antibiotic. Status: Acute (8) Alcohol abuse: Monitor for withdrawal. Last drink 2 days ago. Replace hypomagnesemia. Appreciate case management assistance with options for EtOH rehabilitation. Status: Chronic (9) Chronic prescription benzodiazepine use: Had previously been on Xanax, currently on Klonopin. For anxiety. Has several refills from Klonopin prescription but feels like Xanax helped him more. Status: Chronic (10) Depression: Chronically on citalopram. Status: Chronic (11) Hypertension: Chronically on losartan. Status: Chronic (12) Nicotine dependence, cigarettes, uncomplicated: Smokes a pack to a pack and a half of cigarettes a day and has for many years. Status: Chronic (13) Thrombocytopenia: Improving. With suspect most likely EtOH induced. Continue to encourage alcohol cessation. Monitor platelet levels. No anticoagulation for VT prophylaxis. Status: Acute Plan Hypomagnesemia: Replace Attestations Medical Necessity Statement*: Continue admission for assessment management of alcohol withdrawal, pancreatitis, de-escalation of therapy, discharge planning. Coding Level of Care Code Acute Lumber Planer for [facility] Diagnoses Alcohol withdrawal F10.939 Pancreatitis K85.20 Chronicity: acute Pancreatitis type: alcohol induced Acute pancreatitis complication: unspecified Nausea & vomiting R11.14 Vomiting type: bilious vomiting Acute renal failure N17.8 Acute renal failure type: with other specified pathological lesion High anion gap metabolic acidosis E87.2 Hepatitis K75.9 Abnormal urinalysis R82.90 Alcohol abuse F10.10 Chronic prescription benzodiazepine use Z79.899 Depression F32.A Hypertension I10 Nicotine dependence, cigarettes, uncomplicated F17.210 Thrombocytopenia D69.6
[2022-05-27 15:52] VITALS: BP 136/90; PULSE 85; RESP 16; TEMP 36.8; O2SAT 100
[2022-05-27 17:05] LABS: Glucose Point of Care 110 mg/dL (70-110)
[2022-05-27 20:00] VITALS: BP 125/82; PULSE 104; RESP 13; TEMP 37.4; O2SAT 100
[2022-05-27] MEDS: citalopram 20 mg Tablet PO (22:04)
[2022-05-27 22:18] LABS: Glucose Point of Care 114 mg/dL (70-110)
--- NOTE | 2022-05-27 22:41 | PC.NURSE ---
CHANGE IN PT CARE Pt care assumed at this time. Has sitter at the bedside. Is confused as to the day & date. Does know he is in the hospital in [place]. Up to BSC at this time plus was incont loose BM. Says he just can't seem to get up fast enough
[2022-05-28] VITALS: BP 113/79; PULSE 89; RESP 17; TEMP 36.8; O2SAT 100
[2022-05-28 04:00] VITALS: BP 127/87; PULSE 84; RESP 12; TEMP 36.8; O2SAT 100
[2022-05-28 04:22] LABS: Basophils % 0.5 %; Eosinophils # 0.1 10^3/uL (0.0-0.8); Eosinophils % 0.6 %; Hematocrit 26.4 % (42.0-52.0); Hemoglobin 9.1 g/dL (11.7-16.6); Lymphocytes # 0.7 10^3/uL (0.8-4.8); Lymphocytes % 8.8 %; Mean Corpuscular HGB Conc 34.5 g/dL (30.0-36.0); Mean Corpuscular Hemoglobin 34.7 pg (28.0-34.0); Mean Corpuscular Volume 100.8 fl (80-94); Mean Platelet Volume 11.5 fL (7.4-10.4); Monocytes # 1.3 10^3/uL (0.2-0.9); Monocytes % 16.2 %; Neutrophils # 5.65 10^3/uL (1.8-7.7); Nucleated Red Blood Cells % 0 %; Platelet Count 135 10^3/cmm (130-400); Red Blood Count 2.62 10^6/uL (4.1-5.3); Red Cell Distribution Width 14.3 % (12.1-15.1); White Blood Count 7.9 10^3/uL (4.0-10.0)
[2022-05-28 04:43] LABS: Alanine Aminotransferase 62 U/L (0-41); Albumin Level 3.1 g/dL (3.5-5.2); Alkaline Phosphatase 349 IU/L (40-130); Anion Gap 22.8 (5-19); Aspartate Amino Transferase 112 U/L (0-40); Blood Urea Nitrogen 23 mg/dL (6-20); Calcium 8.7 mg/dL (8.5-10.5); Carbon Dioxide 20 mmol/L (22-29); Chloride 103 mmol/L (98-107); Globulin 3.3 g/dL (1.3-4.6); Glomerular Filtration Rate 79.1 mL/min (90-130); Glucose 114 mg/dL (65-115); Magnesium 1.4 mg/dL (1.7-2.3); Osmolality Calculated 301 mOsm/kg (285-295); Sodium 143 mmol/L (136-145); Total Bilirubin 1.1 mg/dL (0.15-1.2); Total Protein 6.4 g/dL (6.6-8.7)
[2022-05-28 05:25] LABS: Lipase 768 U/L (13-60); Potassium 2.8 mmol/L (3.5-5.1)
[2022-05-28 06:30] LABS: Glucose Point of Care 114 mg/dL (70-110)
[2022-05-28] MEDS: sucralfate 1 gm Tablet PO ×3 (06:30→17:18)
[2022-05-28] MEDS: pantoprazole DR 40 mg Tablet PO ×2 (07:58→17:18)
[2022-05-28] MEDS: chlordiazePOXIDE 25 mg Capsule 50 MG PO (07:58)
[2022-05-28] MEDS: thiamine 100 mg Tablet PO (07:58)
[2022-05-28] MEDS: multivitamin therapeutic Tablet 1 TAB PO (07:58)
[2022-05-28] MEDS: folic acid 1 mg Tablet PO (07:58)
[2022-05-28 08:00] VITALS: BP 146/94; PULSE 80; RESP 16; TEMP 36.4; O2SAT 100
[2022-05-28] MEDS: CLONazepam 0.5 mg Tablet PO ×2 (08:04→20:03)
[2022-05-28] MEDS: olopatadine 0.1% Op Soln 5 mL Btl 1 DROP EYE-BOTH ×2 (08:04→17:17)
[2022-05-28] MEDS: magnesium sulfate premix 4 GM/100 ML PREMIX IV (09:55)
[2022-05-28 12:00] VITALS: BP 134/87; PULSE 86; RESP 16; TEMP 36.7; O2SAT 100
[2022-05-28 12:14] LABS: Glucose Point of Care 121 mg/dL (70-110)
[2022-05-28 17:26] LABS: Glucose Point of Care 138 mg/dL (70-110)
--- NOTE | 2022-05-28 17:45 | PM.PN ---
Subjective Subjective: No nausea or vomiting, abdominal pain better. However, he feels weak and deconditioned. This morning had a loose stool and required assistance to get to the commode. Vitals/I&O/Wt Last Vital Signs Temp 98.0 F 05/28/22 12:00 Pulse 86 05/28/22 12:00 Resp 16 05/28/22 12:00 BP 134/87 05/28/22 12:00 Pulse Ox 100 05/28/22 12:00 O2 Del Method 05/28/22 12:00 05/28/22 05/28/22 05/28/22 06:59 14:59 22:59 Intake Total 120 / 500 580 / 580 Balance 120 / 500 580 / 580 Physical Exam Const: COMMON NORMALS: patient oriented x3 and alert GENERAL APPEARANCE: cooperative ORIENTATION/CONSCIOUSNESS: Yes awake OTHER: Calm Weak HENMT: COMMON NORMALS: oropharynx normal Neck/C-Spine: COMMON NORMALS: no JVD Resp: COMMON NORMALS: normal respiratory effort and clear to auscultation bilaterally AUSCULTATION: clear to auscultation bilaterally Cardio: COMMON NORMALS: no JVD, regular rhythm, S1 normal heart sound present, S2 normal heart sound present and No murmurs present (Cardio) RHYTHM: regular rhythm HEART SOUNDS: S1 normal heart sound present and S2 normal heart sound present GI: COMMON NORMALS: Normal to inspection, nondistended, normoactive bowel sounds present, Soft to palpation and non-tender PALPATION: Yes Soft to palpation Extremity: COMMON NORMALS: no joint enlargement and no pedal edema Neuro: COMMON NORMALS: patient oriented x3 and moves all extremities SENSORIUM/ORIENTATION: Yes alert OTHER: Tremulous Skin: COMMON NORMALS: no rashes or lesions noted GENERAL SKIN EXAM: no rashes or lesions noted Data : 05/28/22 03:20 05/28/22 03:20 A&P Assessment and plan (1) Alcohol withdrawal: So significant hypokalemia, hypomagnesemia. Replaced. He is also significantly physically deconditioned. Required assistance getting to the commode. Requested PT, OT assessment. Discussed with case management, he likely will benefit from skilled rehabilitation. Withdrawal itself appears to be improved. Continue Librium. Klonopin. Continue to monitor. Continue supportive care. Provided with options for EtOH rehabilitation. Status: Acute (2) Pancreatitis: Has been improving. Lipase is slightly worse today, but symptomatically overall is doing better with improvement in pain. Resolution of nausea and vomiting. Advance to full liquids. Off IVF. Full liquid diet. Discussed with case management to help him with options for EtOH rehabilitation. Presumptively alcohol related, clinically does not appear to have associated infection or necrosis given lack of pain and other systemic signs and symptoms suggesting such but has not had imaging. No prior history of pancreatitis known to patient. Status: Acute Qualifiers: Acute pancreatitis complication: no infection or necrosis Chronicity: acute Pancreatitis type: alcohol induced Qualified Code(s): K85.20 - Alcohol induced acute pancreatitis without necrosis or infection (3) Nausea & vomiting: Resolved. Continue symptomatic management. Status: Acute Qualifiers: Vomiting type: bilious vomiting Qualified Code(s): R11.14 - Bilious vomiting (4) Acute renal failure: Improving. Oral intake improving. Stop IVF. Recheck renal function. If continues to improve, possibly discharge tomorrow. Most likely prerenal given degree of vomiting described and urinary findings but cannot rule out component of ATN. In particular I do have concerns about potential for coinciding rhabdomyolysis with 3+ blood noted but only 0-4 red blood cells. Status: Acute Qualifiers: Acute renal failure type: with other specified pathological lesion Qualified Code(s): N17.8 - Other acute kidney failure (5) High anion gap metabolic acidosis: Worse anion gap again. Bicarb somewhat better. Possibly secondary to diarrhea. Off IVF. Monitor renal function. Most likely secondary to alcoholic ketosis. Denies ingestion of ethylene glycol or other similar substance. Has hyperglycemia without a history of diabetes. Status: Acute (6) Hepatitis: Alcoholic hepatitis. Improving. Most likely alcohol related based on available information. No known history of such for the patient. Review of available records here does show significant hyperbilirubinemia at 4.1 in March of this year with elevated transaminases in similar range. Has not had any abdominal imaging or hepatitis panel at our facility previously. Status: Acute (7) Abnormal urinalysis: So far no growth on urine culture. Stop antibiotic. Status: Acute (8) Alcohol abuse: Monitor for withdrawal. Last drink 2 days ago. Replace hypomagnesemia. Appreciate case management assistance with options for EtOH rehabilitation. Status: Chronic (9) Chronic prescription benzodiazepine use: Had previously been on Xanax, currently on Klonopin. For anxiety. Has several refills from Klonopin prescription but feels like Xanax helped him more. Status: Chronic (10) Depression: Chronically on citalopram. Status: Chronic (11) Hypertension: Chronically on losartan. Status: Chronic (12) Nicotine dependence, cigarettes, uncomplicated: Smokes a pack to a pack and a half of cigarettes a day and has for many years. Status: Chronic (13) Thrombocytopenia: Improving. With suspect most likely EtOH induced. Continue to encourage alcohol cessation. Monitor platelet levels. No anticoagulation for VT prophylaxis. Status: Acute (14) Physical deconditioning: Status: Acute Plan Hypomagnesemia: Replace Diarrhea: Possibly secondary to ceftriaxone. Monitor for persistence. Evaluate further if so. Attestations Medical Necessity Statement*: Continue admission for assessment of management of severe electrolyte deficiencies, alcohol withdrawal, metabolic acidosis, improving pancreatitis, assessment of functional decline, significant deconditioning, disposition planning. Coding Level of Care Code Acute Senior Energy Market Coordinator for [facility] Fwd Exam Comprehensive Diagnoses Alcohol withdrawal F10.939 Pancreatitis K85.20 Acute pancreatitis complication: no infection or necrosis Chronicity: acute Pancreatitis type: alcohol induced Nausea & vomiting R11.14 Vomiting type: bilious vomiting Acute renal failure N17.8 Acute renal failure type: with other specified pathological lesion High anion gap metabolic acidosis E87.2 Hepatitis K75.9 Abnormal urinalysis R82.90 Alcohol abuse F10.10 Chronic prescription benzodiazepine use Z79.899 Depression F32.A Hypertension I10 Nicotine dependence, cigarettes, uncomplicated F17.210 Thrombocytopenia D69.6 Physical deconditioning R53.81
[2022-05-28 20:00] VITALS: BP 109/69; PULSE 98; RESP 18; TEMP 37.3; O2SAT 99
[2022-05-28] MEDS: citalopram 20 mg Tablet PO (20:03)
[2022-05-28 21:20] LABS: Glucose Point of Care 137 mg/dL (70-110)
[2022-05-29] VITALS: BP 126/84; PULSE 79; RESP 16; TEMP 36.6; O2SAT 98
[2022-05-29 04:00] VITALS: BP 139/89; PULSE 80; RESP 16; TEMP 36.8; O2SAT 99
[2022-05-29 05:28] LABS: Basophils # 0.1 10^3/uL (0.0-0.1); Basophils % 0.8 %; Eosinophils # 0.1 10^3/uL (0.0-0.8); Eosinophils % 1.7 %; Hematocrit 25.2 % (42.0-52.0); Hemoglobin 8.7 g/dL (11.7-16.6); Lymphocytes # 0.8 10^3/uL (0.8-4.8); Lymphocytes % 12.7 %; Mean Corpuscular HGB Conc 34.5 g/dL (30.0-36.0); Mean Corpuscular Hemoglobin 34.9 pg (28.0-34.0); Mean Corpuscular Volume 101.2 fl (80-94); Mean Platelet Volume 11.1 fL (7.4-10.4); Monocytes # 1.5 10^3/uL (0.2-0.9); Monocytes % 23.1 %; Neutrophils # 3.81 10^3/uL (1.8-7.7); Nucleated Red Blood Cells % 0 %; Platelet Count 180 10^3/cmm (130-400); Red Blood Count 2.49 10^6/uL (4.1-5.3); Red Cell Distribution Width 14.2 % (12.1-15.1); White Blood Count 6.6 10^3/uL (4.0-10.0)
[2022-05-29 05:57] LABS: Alanine Aminotransferase 59 U/L (0-41); Albumin Level 3.2 g/dL (3.5-5.2); Alkaline Phosphatase 277 IU/L (40-130); Anion Gap 16.6 (5-19); Aspartate Amino Transferase 86 U/L (0-40); Blood Urea Nitrogen 20 mg/dL (6-20); Calcium 8.7 mg/dL (8.5-10.5); Carbon Dioxide 23 mmol/L (22-29); Chloride 104 mmol/L (98-107); Globulin 3.1 g/dL (1.3-4.6); Glomerular Filtration Rate 102.3 mL/min (90-130); Glucose 111 mg/dL (65-115); Magnesium 1.7 mg/dL (1.7-2.3); Osmolality Calculated 295 mOsm/kg (285-295); Sodium 141 mmol/L (136-145); Total Bilirubin 0.9 mg/dL (0.15-1.2); Total Protein 6.3 g/dL (6.6-8.7)
[2022-05-29 06:03] LABS: Potassium 2.6 mmol/L (3.5-5.1)
[2022-05-29 06:10] LABS: Lipase 711 U/L (13-60)
[2022-05-29] MEDS: sucralfate 1 gm Tablet PO ×2 (06:34→10:11)
[2022-05-29 06:39] LABS: Glucose Point of Care 119 mg/dL (70-110)
[2022-05-29 08:00] VITALS: BP 137/84; PULSE 84; RESP 15; TEMP 36.8; O2SAT 99
[2022-05-29] MEDS: potassium chloride ER 20 mEq Tablet 40 MEQ PO (10:07)
[2022-05-29] MEDS: magnesium sulfate premix 2 GM/50 ML PIGGYBACK IV (10:07)
[2022-05-29] MEDS: thiamine 100 mg Tablet PO (10:08)
[2022-05-29] MEDS: chlordiazePOXIDE 25 mg Capsule 50 MG PO (10:09)
[2022-05-29] MEDS: folic acid 1 mg Tablet PO (10:09)
[2022-05-29] MEDS: olopatadine 0.1% Op Soln 5 mL Btl 1 DROP EYE-BOTH (10:09)
[2022-05-29] MEDS: multivitamin therapeutic Tablet 1 TAB PO (10:09)
[2022-05-29] MEDS: pantoprazole DR 40 mg Tablet PO (10:09)
[2022-05-29 12:20] LABS: Glucose Point of Care 150 mg/dL (70-110)
--- NOTE | 2022-05-29 13:48 | P.DS_ITS ---
Discharge Providers Date of Admission: 05/24/22 13:04 Date of Discharge: May 29, 2022 Attending Provider at Admission: Meredith Serrano MD Attending Provider at Discharge: Hasmukh Robert Diagnoses at Discharge Discharge Diagnosis (1) Alcohol withdrawal: Status: Acute (2) Pancreatitis: Status: Acute Qualifiers: Chronicity: acute Pancreatitis type: alcohol induced Acute pancreatitis complication: no infection or necrosis Qualified Code(s): K85.20 - Alcohol induced acute pancreatitis without necrosis or infection (3) Nausea & vomiting: Status: Acute Qualifiers: Vomiting type: bilious vomiting Qualified Code(s): R11.14 - Bilious vomiting (4) Acute renal failure: Status: Acute Qualifiers: Acute renal failure type: with other specified pathological lesion Qualified Code(s): N17.8 - Other acute kidney failure (5) High anion gap metabolic acidosis: Status: Acute (6) Hepatitis: Status: Acute (7) Abnormal urinalysis: Status: Acute (8) Alcohol abuse: Status: Chronic (9) Chronic prescription benzodiazepine use: Status: Chronic (10) Depression: Status: Chronic (11) Hypertension: Status: Chronic (12) Nicotine dependence, cigarettes, uncomplicated: Status: Chronic (13) Thrombocytopenia: Status: Acute (14) Physical deconditioning: Status: Acute Reason for Visit Reason for Visit: N/V/D, WEAKNESS, HALLUCINATION Hospital Course Hospital Course Pleasant 59 gentleman with history of alcohol abuse, anxiety, depression, HTN was admitted for assessment and management after presenting with intractable nausea and vomiting, unable to take oral intake, some loose stools, generalized weakness, on presentation with acute kidney injury, creatinine 4.8, hepatitis with worsened transaminitis with 2-1 pattern, AST, ALT 179 and 80, and pancreatitis with lipase of 5973. Abdominal ultrasound with noted hepatomegaly with coarsened echogenicity compatible with hepatocellular disease. Hypoechoic pancreas suspicious for pancreatitis. Gallbladder sludge. No gallbladder wall thickening or pericholecystic fluid. Normal CBD. Noted also high anion gap metabolic acidosis thought to be most likely secondary to alcoholic ketosis, renal dysfunction. On presentation also noted abnormal urinalysis initially thought to be possibly secondary to UTI, and empirically was started on Rocephin, however, with no growth on urine culture antibiotic eventually discontinued. He was maintained on bowel rest, IV fluid hydration, antiemetics. During hospitalization he also went into alcohol withdrawal, treated with Librium, Ativan as needed. Continues on thiamine, folic acid, multivitamins. Nicotine replacement. His nausea vomiting had gradually resolved. Abdominal pain resolved. Lipase has trended down to 711. He was tolerating clear liquids and then full liquid d iet. Acute viral hepatitis panel was negative. His transaminases have been continuing to improve and likely related to alcoholic hepatitis. Alcohol withdrawal is resolved. He remains weak, however, yesterday required some assistance getting to the commode. Today a little bit better with standby/minimal assist. Rehabilitation was discussed and he was offered arrangement to go to SNF, however, did declined. He required multiple replacements of magnesium and potassium, and is given prescription for continued supplementation over the next 15 days. Please follow-up the electrolyte levels. He remains somewhat generally weak, tremulous, but is alert and lucid, with low CIWA score and is no longer withdrawing. He feels good about returning home where he lives with his who in case he will be needing assistance will be able to provide it. He states he will be following up at [facility]. He was additionally provided with information for options for alcohol rehabili tation. Please continue to encourage cessation. Encourage smoking cessation. Please follow-up chronic conditions including HTN, anxiety, depression. Physical Exam Const: COMMON NORMALS: patient oriented x3 and alert GENERAL APPEARANCE: cooperative ORIENTATION/CONSCIOUSNESS: Yes awake OTHER: Calm Weak HENMT: COMMON NORMALS: oropharynx normal Neck/C-Spine: COMMON NORMALS: no JVD Resp: COMMON NORMALS: normal respiratory effort and clear to auscultation bilaterally AUSCULTATION: clear to auscultation bilaterally Cardio: COMMON NORMALS: no JVD, regular rhythm, S1 normal heart sound present, S2 normal heart sound present and No murmurs present (Cardio) RHYTHM: regular rhythm HEART SOUNDS: S1 normal heart sound present and S2 normal heart sound present GI: COMMON NORMALS: Normal to inspection, nondistended, normoactive bowel sounds present, Soft to palpation and non-tender PALPATION: Yes Soft to palpation Extremity: COMMON NORMALS: no joint enlargement and no pedal edema Neuro: COMMON NORMALS: patient oriented x3 and moves all extremities SENSORIUM/ORIENTATION: Yes alert OTHER: Deconditioned, tremulous Skin: COMMON NORMALS: no rashes or lesions noted GENERAL SKIN EXAM: no rashes or lesions noted Discharge Data Studies Completed and Pending Completed Studies During Hospitalization Category Date Time Status US abdomen complete* [id number] Routine Ultrasound 05/24/22 14:56 Completed Pending at discharge Category Date Time Status Complete Blood Count w/Auto AM LABS Lab 05/30/22 04:00 Ordered Complete Blood Count w/Auto AM LABS Lab 05/31/22 04:00 Ordered Comprehensive Metabolic Panel AM LABS Lab 05/30/22 04:00 Ordered Comprehensive Metabolic Panel AM LABS Lab 05/31/22 04:00 Ordered Lipase AM LABS Lab 05/30/22 04:00 Ordered Lipase AM LABS Lab 05/31/22 04:00 Ordered Magnesium AM LABS Lab 05/30/22 04:00 Ordered Magnesium AM LABS Lab 05/31/22 04:00 Ordered Potassium Routine Lab 05/29/22 16:00 Ordered Radiology Impressions Abdomen Ultrasound 05/24/22 14:56 IMPRESSION: 1. Hepatomegaly with coarse echogenicity compatible with hepatocellular disease. Recommend correlation with liver function studies. 2. Hypoechoic pancreas suspicious for pancreatitis. Recommend correlation with pancreatic enzymes. 3. Gallbladder sludge. No gallbladder wall thickening or pericholecystic fluid. 4. Normal common bile duct. 5. No hydronephrosis in either kidney. Laboratory Results WBC 6.6 10^3/uL (4.0-10.0) 05/29/22 04:30 RBC 2.49 10^6/uL (4.1-5.3) L 05/29/22 04:30 Hgb 8.7 g/dL (11.7-16.6) L 05/29/22 04:30 Hct 25.2 % (42.0-52.0) L 05/29/22 04:30 MCV 101.2 fl (80-94) H 05/29/22 04:30 MCH 34.9 pg (28.0-34.0) H 05/29/22 04:30 MCHC 34.5 g/dL (30.0-36.0) 05/29/22 04:30 RDW 14.2 % (12.1-15.1) 05/29/22 04:30 Plt Count 180 10^3/cmm (130-400) D 05/29/22 04:30 MPV 11.1 fL (7.4-10.4) H 05/29/22 04:30 Neut % (Auto) 58.0 % 05/29/22 04:30 Lymph % (Auto) 12.7 % 05/29/22 04:30 [place] % (Auto) 23.1 % 05/29/22 04:30 Eos % (Auto) 1.7 % 05/29/22 04:30 Baso % (Auto) 0.8 % 05/29/22 04:30 Neut # (Auto) 3.81 10^3/uL (1.8-7.7) 05/29/22 04:30 Lymph # (Auto) 0.8 10^3/uL (0.8-4.8) 05/29/22 04:30 [place] # (Auto) 1.5 10^3/uL (0.2-0.9) H 05/29/22 04:30 Eos # (Auto) 0.1 10^3/uL (0.0-0.8) 05/29/22 04:30 Baso # (Auto) 0.1 10^3/uL (0.0-0.1) 05/29/22 04:30 Nucleated RBC % (auto) 0 % 05/29/22 04:30 Nucleated RBCs # 0.0 /100WBC 05/29/22 04:30 PT 13.10 SECONDS (12.1-14.9) 05/24/22 09:04 INR 0.97 (0.8-1.2) 05/24/22 09:04 APTT 30.0 SECONDS (23.9-36.7) 05/24/22 09:04 Specimen Type Arterial 05/24/22 16:20 Sample Site Brachial, right 05/24/22 16:20 ABG pH 7.38 (7.35-7.45) 05/24/22 16:20 ABG pCO2 29.8 mmHg (35-45) L 05/24/22 16:20 ABG pO2 65.3 mmHg (80.0-100.0) L 05/24/22 16:20 ABG HCO3 17.8 mmol/L (22-26) L 05/24/22 16:20 ABG O2 Saturation 93.9 05/24/22 16:20 ABG Base Excess -6.2 mmol/L (-2.0-2.0) L 05/24/22 16:20 Gerardo Test N/a 05/24/22 16:20 A-a O2 Gradient 6.0 mmHg (5-10) 05/24/22 16:20 Hematocrit 33.4 % (42-52) L 05/24/22 16:20 Hgb O2 Saturation 91.2 % (95-100) L 05/24/22 16:20 Carboxyhemoglobin 1.6 %THgb (0.4-20.1) 05/24/22 16:20 Methemoglobin 1.2 % (0.4-1.5) 05/24/22 16:20 Total Hemoglobin 10.9 g/dL (14-18) L 05/24/22 16:20 Sodium 140.0 mmol/L (131-143) 05/24/22 16:20 Potassium 3.1 mmol/L (3.5-5.0) L 05/24/22 16:20 Glucose 100.0 mg/dL (70-115) 05/24/22 16:20 Ionized Calcium 1.1 mmol/L (1.1-1.4) 05/24/22 16:20 O2 Delivery Device Room air 05/24/22 16:20 Bias Machine Operator Helper ID Gd 05/24/22 16:20 Sodium 141 mmol/L (136-145) 05/29/22 04:30 Potassium 2.6 mmol/L (3.5-5.1) L* 05/29/22 04:30 Chloride 104 mmol/L (98-107) 05/29/22 04:30 Carbon Dioxide 23 mmol/L (22-29) 05/29/22 04:30 Anion Gap 16.6 (5-19) 05/29/22 04:30 BUN 20 mg/dL (6-20) 05/29/22 04:30 Creatinine 0.8 mg/dL (0.7-1.2) 05/29/22 04:30 GFR Calculation 102.3 mL/min (90-130) 05/29/22 04:30 Glucose 111 mg/dL (65-115) 05/29/22 04:30 POC Glucose 150 mg/dL (70-110) H 05/29/22 12:18 Estimat Average Glucose 91 05/25/22 04:50 Hemoglobin A1c 4.8 % (4.0-6.0) 05/25/22 04:50 Serum Osmolality 326 mOsm/kg (278-305) H 05/24/22 09:04 Calculated Osmolality 295 mOsm/kg (285-295) 05/29/22 04:30 Calcium 8.7 mg/dL (8.5-10.5) 05/29/22 04:30 Phosphorus 0.9 mg/dL (2.5-4.5) L D 05/25/22 04:50 Phosphorus Cancelled 05/25/22 04:50 Magnesium 1.7 mg/dL (1.7-2.3) 05/29/22 04:30 Total Bilirubin 0.9 mg/dL (0.15-1.2) 05/29/22 04:30 AST 86 U/L (0-40) H 05/29/22 04:30 ALT 59 U/L (0-41) H 05/29/22 04:30 Alkaline Phosphatase 277 IU/L (40-130) H 05/29/22 04:30 Ammonia 25 umol/L (16-60) 05/24/22 09:33 Creatine Kinase 92 U/L (39-308) 05/24/22 09:04 Total Protein 6.3 g/dL (6.6-8.7) L 05/29/22 04:30 Albumin 3.2 g/dL (3.5-5.2) L 05/29/22 04:30 Globulin 3.1 g/dL (1.3-4.6) 05/29/22 04:30 Lipase 711 U/L (13-60) H 05/29/22 04:30 Urine Color Brown (Yellow) 05/24/22 10:25 Urine Appearance Cloudy (CLEAR) 05/24/22 10:25 Urine pH 5 (5-7) 05/24/22 10:25 Ur Specific [place] 1.020 (1.005-1.030) 05/24/22 10:25 Urine Protein 3+ (Negative) H 05/24/22 10:25 Urine Glucose (UA) Norm (Normal) 05/24/22 10:25 Urine Ketones 1+ (Negative) H 05/24/22 10:25 Urine Blood 3+ (Negative) H 05/24/22 10:25 Urine Nitrate Positive (Negative) H 05/24/22 10:25 Urine Bilirubin 2+ (Negative) H 05/24/22 10:25 Urine Urobilinogen 4 mg/dL (Negative) H 05/24/22 10:25 Ur Leukocyte Esterase 1+ (Negative) H 05/24/22 10:25 Urine RBC 0-4 /hpf (0-2) H 05/24/22 10:25 Urine WBC 0-4 /hpf (0-5) H 05/24/22 10:25 Ur Squamous Epith Cells 0-4 /hpf (0-5) H 05/24/22 10:25 Amorphous Sediment 3+ /hpf 05/24/22 10:25 Urine Bacteria Trace /hpf (NONE) 05/24/22 10:25 Hyaline Casts 0-4 /lpf H 05/24/22 10:25 Fine Granular Casts 0-4 /lpf H 05/24/22 10:25 Urine Mucus 3+ /hpf 05/24/22 10:25 Urine Opiates Screen Negative ng/mL (Negative) 05/24/22 10:25 Ur Barbiturates Screen Negative ng/mL (Negative) 05/24/22 10:25 Ur Phencyclidine Scrn Negative ng/mL (Negative) 05/24/22 10:25 Ur Amphetamines Screen Negative ng/mL (Negative) 05/24/22 10:25 U Benzodiazepines Scrn Positive ng/mL (Negative) H 05/24/22 10:25 Urine Cocaine Screen Negative ng/mL (Negative) 05/24/22 10:25 U Marijuana (THC) Screen Negative ng/mL (Negative) 05/24/22 10:25 Ethyl Alcohol < 10 mg/dL (0-10) 05/24/22 09:04 Serum Ketones Positive (Negative) H 05/24/22 09:04 Hepatitis A IgM Ab Non-reactive (Nonreactive) 05/24/22 09:04 Hep Bs Antigen Non-reactive (Nonreactive) 05/24/22 09:04 Hep B Core IgM Ab Non-reactive (Nonreactive) 05/24/22 09:04 Hepatitis C Antibody Non-reactive (Nonreactive) 05/24/22 09:04 Vitals Last Vital Signs Temp 98.3 F 05/29/22 08:00 Pulse 84 05/29/22 08:00 Resp 15 05/29/22 08:00 BP 137/84 05/29/22 08:00 Pulse Ox 99 05/29/22 08:00 O2 Del Method 05/28/22 12:00 Discharge Plan Discharge Patient Disposition: Home Condition: Stable Prescriptions: New multivitamin with folic acid [Thera] 400 mcg Tablet 1 tab PO DAILY Qty: 90 0RF thiamine mononitrate (vit B1) [Vitamin B-1 (mononitrate)] 100 mg Tablet 100 mg PO DAILY Qty: 90 0RF potassium chloride 20 mEq tablet extended release 20 meq PO BID Qty: 30 0RF pantoprazole 40 mg Tablet,Delayed Release (Dr/Ec) 40 mg PO BID 42 Days Qty: 84 0RF nicotine 21 mg/24 hr Patch 24 Hour 1 patch transdermal DAILY PRN (Reason: nicotine withdrawl) Qty: 90 0RF folic acid 1 mg tablet 1,000 mcg PO DAILY Qty: 90 0RF magnesium 250 mg tablet 250 mg PO DAILY Qty: 15 0RF Continued sucralfate 1 gram tablet 1 g PO AC clonazepam 0.5 mg tablet 0.5 mg PO BID citalopram 20 mg tablet 20 mg PO BEDTIME folic acid 1 mg Tablet 1 mg PO DAILY Changed losartan 100 mg tablet 50 mg PO DAILY Qty: 1 0RF Discharge Orders: Discharge Order (Routine); Ordered 05/29/22 Ordered By: Hasmukh Robert Referrals: Duc Newsome DO [Referring] - 7-10 days Discharge Diet: Advance as tolerated Discharge Activity: Increase activity as tolerated and As per PT/OT instructions Patient Instructions: Pancreatitis (GEN), Acute Kidney Injury (GEN), Potassium Content of Foods List (GEN), Hypokalemia (GEN), Alcohol Withdrawal (GEN), Hypomagnesemia (GEN), Fall Prevention (GEN), Alcohol Dependence (GEN) Activity Restrictions/Additional Instructions: Please avoid any alcohol intake to avoid future alcohol withdrawal. Please note that due to alcohol intake your potassium and magnesium have been low, have been receiving replacement. You are provided with additional replacement at discharge. Please continue potassium magnesium and have your primary doctor recheck levels. Please follow-up with your doctor after the episode of pancreatitis. Again please avoid any alcohol to avoid repeat pancreatitis, avoid chronic pancreatitis. Severe primary doctor follow-up regarding alcohol induced hepatitis. Please have your primary doctor also follow-up regarding alcohol induced low platelet level. If you notice any abnormal bleeding, seek medical attention. Please have your primary doctor also follow-up for persistent improvement of kidney injury. For now please reduce your dose of losartan. Avoid any NSAIDs like ibuprofen, Aleve, etc. Continue follow-up with your primary doctor regarding other chronic conditions including blood pressure, depression, please attempt to quit smoking. Discharge Attestations Time Spent in Discharge Care*: greater than 30 min Quality Metrics Clinical Quality Measures [ No reported AMI, CVA or VTE this stay] Coding Level of Care Code Acute Chg FW DC note Diagnoses Alcohol withdrawal F10.939 Pancreatitis K85.20 Chronicity: acute Pancreatitis type: alcohol induced Acute pancreatitis complication: no infection or necrosis Nausea & vomiting R11.14 Vomiting type: bilious vomiting Acute renal failure N17.8 Acute renal failure type: with other specified pathological lesion High anion gap metabolic acidosis E87.2 Hepatitis K75.9 Abnormal urinalysis R82.90 Alcohol abuse F10.10 Chronic prescription benzodiazepine use Z79.899 Depression F32.A Hypertension I10 Nicotine dependence, cigarettes, uncomplicated F17.210 Thrombocytopenia D69.6 Physical deconditioning R53.81
[2022-05-29 14:00] VITALS: PULSE 0
[2022-05-29 17:04] LABS: Potassium 2.7 mmol/L (3.5-5.1)
--- NOTE | 2022-05-29 17:21 | PC.NURSE ---
Home meds returned to patient prior to DC. Money taken out of drawer and returned to patient. Patient and spouse instructed on importance of potassium and magnesium and the need to nut picker potassium prescription and resume today. Educated on effects of low potassium and importance of follow up with labs.
--- NOTE | 2022-06-03 11:01 | DCPLANNER ---
late entry - case maker had message to speak with patient about getting established with a primary care physician. manager of clinical unable to speak with patient at this time.
== END 2022-05-29 17:23 | disposition home or self-care (01) | DRG 438 ==
LOC: ER 11:16 → MEDSURG 14:32
PROVIDERS: Admitting Provider Hospitalist; Emergency Provider Family Medicine; Visit Provider Internal Medicine
DX: K85.20 Alcohol induced acute pancreatitis without necrosis or infection (principal); N17.0 Acute kidney failure with tubular necrosis; F10.239 Alcohol dependence with withdrawal, unspecified; M62.82 Rhabdomyolysis; E87.2 Acidosis; N17.8 Other acute kidney failure; K70.10 Alcoholic hepatitis without ascites; F41.9 Anxiety disorder, unspecified; F32.A Depression, unspecified; I10 Essential (primary) hypertension; F17.210 Nicotine dependence, cigarettes, uncomplicated; R73.9 Hyperglycemia, unspecified; E83.42 Hypomagnesemia; Z79.899 Other long term (current) drug therapy; D69.59 Other secondary thrombocytopenia
CPT/HCPCS: 36415; 36416; 36600; 76700; 80051; 80053; 80074; 80306; 80307; 81001; 82009; 82140; 82330; 82550; 82805; 82962; 83036; 83690; 83735; 83930; 84100; 84132; 85025; 85610; 85730; 87086; 94760; 96361; 96372; 96374; 97116; 97161; 97165; 97530; 99285; J0696; J2405; J3411; J3475; J3480; J3490; J7030